=== PATIENT | female | born 1990 | race African-American/Black ===

== ENCOUNTER 2024-09-23 14:43 | Emergency (ER) | payer OTHER, SELFPAY ==
--- NOTE | ~2024-09-23 | XR_ITS ---
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 RESULT: Lines, tubes, and devices: None. Lungs and pleura: Low volumes with crowding, otherwise clear. Cardiomediastinal silhouette: Normal. Other: No acute osseous or upper abdominal finding. IMPRESSION: No acute cardiopulmonary process. Reviewed, dictated and finalized at location K. OR CONTROLS ENGINEER
--- NOTE | 2024-09-23 14:44 | ECG_ITS ---
Test Date: 2024-09-23 14:58:40 Measurements Intervals [place] Rate: 98 P: 37 NM: 165 QRS: 5 QRSD: 90 T: 1 QT: 337 QTc: 431 Interpretive Statements SINUS RHYTHM VOLTAGE CRITERIA FOR LVH BORDERLINE ST-T WAVE ABNORMALITY- INFERIOR LEADS BASELINE ARTIFACT- I, II, III, AVR, AVL, AVF, V3-V4 BORDERLINE ECG No previous ECG available for comparison Electronically Signed On 09-23-2024 15:02:56 [employer]CR[employer] by Horace Cline D.O.
--- NOTE | 2024-09-23 15:11 | ED_ITS ---
HPI - Chest Pain General Chief Complaint: Chest Pain Stated Complaint: CP Focused HPI: This is a 34-year-old female who presents to the ED for chief complaint of chest pain, palpitations onset about 1 hour prior to arrival. 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 States that when She stood up she started having dizziness, palpitations and that started having chest pain. 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 GENERAL: Well-appearing, well-nourished, and in no acute distress. HEAD: Normocephalic, atraumatic. CHEST: Clear to auscultation. No respiratory distress. HEART: Regular rate and rhythm. NEURO: Alert and oriented x3. Patient screened in triage and initial orders placed. Additional care and disposition to be based upon diagnostic testing and treatment. MDM - Chest Pain Lab Data 09/23/24 15:07 09/23/24 15:07 Labs: Lab Results 09/23/24 Range/Units 15:07 WBC Pending RBC Pending Hgb Pending Hct Pending MCV Pending MCH Pending MCHC Pending RDW Pending Plt Count Pending MPV Pending Immature Gran % (Auto) Pending Neut % (Auto) Pending Lymph % (Auto) Pending [place] % (Auto) Pending Eos % (Auto) Pending Baso % (Auto) Pending Lymph # (Auto) Pending [place] # (Auto) Pending Eos # (Auto) Pending Baso # (Auto) Pending Abs Immat Gran (auto) Pending Absolute Neuts (auto) Pending Absolute Nucleated RBC Pending Nucleated RBC % Pending PT Pending INR Pending APTT Pending Sodium Pending Potassium Pending Chloride Pending Carbon Dioxide Pending Anion Gap Pending BUN Pending Creatinine Pending Estim Creat Clear Calc Pending Estimated GFR Pending Glucose Pending Calcium Pending Total Bilirubin Pending AST Pending ALT Pending Alkaline Phosphatase Pending Troponin I Pending Total Protein Pending Albumin Pending Lipase Pending Discharge Plan Discharge Patient Language: Yakut Follow-up/Referrals: PHYSICIAN NOT ON STAFF,NONSTAFF [Primary Care Provider] -
[2024-09-23 15:13] LABS: Basophils Absolute Auto 0.1 K/mm3 (0.0-0.1); Basophils Percent Auto 0.7 % (0.2-1.2); Eosinophils Absolute Auto 0.1 K/mm3 (0-0.3); Eosinophils Percent Auto 0.6 % (0-4.4); Hematocrit 43.1 % (37.0-47.0); Hemoglobin 14.3 g/dL (12.0-15.0); Immature Granulocyte Absolute 0.02 K/mm3 (0.00-0.031); Immature Granulocyte Percent A 0.2 % (0-0.5); Lymphocytes Percent Auto 37.9 % (18.3-44.2); Mean Corpuscular HGB Conc 33.2 g/dl (32-36); Mean Corpuscular Hemoglobin 29.2 pg (26-34); Mean Platelet Volume 10.8 fl (7.4-10.4); Monocytes Absolute Auto 0.5 K/mm3 (0.1-0.6); Monocytes Percent Auto 5.7 % (2.6-8.5); Neutrophils Absolute Auto 4.9 K/mm3 (1.3-6.7); Neutrophils Percent Auto 54.9 % (45.5-73.1); Platelet Count Result 291 k/mm3 (150-375); Red Cell Distribution Width 13.2 % (11.5-14.5)
[2024-09-23 15:18] VITALS: BP 142/101; PULSE 103; RESP 16; TEMP 36.7; O2SAT 97
[2024-09-23 15:22] LABS: Alanine Aminotransferase 28 U/L (6-35); Albumin Level 4.8 g/dL (3.5-5.1); Alkaline Phosphatase 56 U/L (38-126); Anion Gap 14 mmol/L (4-12); Aspartate Amino Transferase 25 U/L (14-36); Bilirubin,Total 0.7 mg/dL (0.2-1.3); Blood Urea Nitrogen 10 mg/dL (7-17); Calcium 9.7 mg/dL (8.4-10.2); Carbon Dioxide 21 mmol/L (22-30); Chloride 104 mmol/L (98-107); Estimated CRCL calculation 132 ml/min; Estimated Glomerular Filt Rate > 60; Glucose 94 mg/dL (65-110); Lipase 342 U/L (23-300); Potassium 3.1 mmol/L (3.4-5.0); Sodium 139 mmol/L (137-145)
[2024-09-23 15:24] LABS: Partial Thromboplastin Time 23.8 Seconds (22.3-36.8); Prothrombin Time 13.3 Seconds (11.1-14.7)
[2024-09-23 15:34] LABS: Troponin I < 0.012 ng/mL (0.000-0.034)
--- NOTE | 2024-09-23 16:57 | ED.CHESTPAIN ---
HPI - Chest Pain General Chief Complaint: Chest Pain Stated Complaint: CP Time Seen by Provider: 09/23/24 16:49 Source: patient and family Mode of arrival: ambulatory Limitations: no limitations History of Present Illness HPI narrative: 34-year-old with no major medical problems presented to the ER with a complaint of right-sided chest pain which started about 15 minutes prior coming to the ER. Patient states that every time she moves in certain direction has pain in the right upper part of her chest. She denies any shortness of breath. No history of fever or chills. 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) Pain location: right chest Pain radiation: none Severity: mild Quality: aching Relieving factors: nothing Exacerbating factors: movement Treatment prior to arrival: none Review of Systems Review of Systems: All systems reviewed & are unremarkable except as noted in HPI and below Constitutional: Constitutional: Reports no additional constitutional complaints Eyes: Eyes: Reports no additional eye complaints ENT: Reports system reviewed and no additional complaints, except as documented Cardiovascular: Cardiovascular: Reports no additional cardiovascular complaints Respiratory: Respiratory: Reports no additional respiratory complaints Gastrointestinal: Gastrointestinal: Reports no additional gastrointestinal complaints Musculoskeletal: Musculoskeletal: Reports no additional musculoskeletal complaints Neurologic: Reports system reviewed and no additional complaints, except as documented Psychiatric: Psychiatric: Reports no additional psychiatric complaints Exam Narrative: GENERAL: Well-appearing, morbidly obese, and in no acute distress. HEAD: Normocephalic, atraumatic. EYES: PERRLA and EOMI. ENT: Nares clear, no rhinorrhea or epistaxis. Mucous membranes moist. NECK: Supple. CHEST: Clear to auscultation. No respiratory distress. Tenderness on palpation in the right costal margin HEART: Regular rate and rhythm. No murmur heard. Normal peripheral pulses. ABDOMEN: Soft, nontender, nondistended, normal active bowel sounds. EXTREMITIES: Normal range of motion. No edema. SKIN: Warm, dry, no rash. NEURO: No focal deficits. Alert and oriented x3. PSYCH: Normal mood and affect. Course Course Emergency Course: Notified patient and family about her lab work, EKG and chest x-ray finding her pain appears to be MSK advised her to take anti-inflammatory medication, follow-up with adoptive Vital Signs Vital signs: Vital Signs Temperature 36.7 C 09/23/24 15:18 Pulse Rate 103 H 09/23/24 15:18 Respiratory Rate 16 09/23/24 15:18 Blood Pressure 142/101 H 09/23/24 15:18 Pulse Oximetry 97 09/23/24 15:18 Temperature 36.7 C 09/23/24 15:18 Pulse Rate 103 H 09/23/24 15:18 Respiratory Rate 16 09/23/24 15:18 Blood Pressure 142/101 H 09/23/24 15:18 Pulse Oximetry 97 09/23/24 15:18 MDM - Chest Pain Differential Diagnosis Differential diagnosis: Likely fracture of rib, atypical chest pain, costochondritis and chest pain Medical Records Data Attestation: I reviewed the patient's medical records. Lab Data Attestation: I reviewed the patient's lab results. 09/23/24 15:07 09/23/24 15:07 Labs: Lab Results 09/23/24 Range/Units 15:07 WBC 9.0 (4.5-10.0) K/mm3 RBC 4.90 (4.2-5.4) M/mm3 Hgb 14.3 (12.0-15.0) g/dL Hct 43.1 (37.0-47.0) % MCV 88.0 (80-100) fl MCH 29.2 (26-34) pg MCHC 33.2 (32-36) g/dl RDW 13.2 (11.5-14.5) % Plt Count 291 (150-375) k/mm3 MPV 10.8 H (7.4-10.4) fl Immature Gran % (Auto) 0.2 (0-0.5) % Neut % (Auto) 54.9 (45.5-73.1) % Lymph % (Auto) 37.9 (18.3-44.2) % [place] % (Auto) 5.7 (2.6-8.5) % Eos % (Auto) 0.6 (0-4.4) % Baso % (Auto) 0.7 (0.2-1.2) % Lymph # (Auto) 3.40 H (0.9-3.2) K/mm3 [place] # (Auto) 0.5 (0.1-0.6) K/mm3 Eos # (Auto) 0.1 (0-0.3) K/mm3 Baso # (Auto) 0.1 (0.0-0.1) K/mm3 Abs Immat Gran (auto) 0.02 (0.00-0.031) K/mm3 Absolute Neuts (auto) 4.9 (1.3-6.7) K/mm3 Absolute Nucleated RBC 0.000 (0.0-0.012) K/mm3 Nucleated RBC % 0.0 (0.0-0.2) % PT 13.3 (11.1-14.7) Seconds INR 1.0 APTT 23.8 (22.3-36.8) Seconds Sodium 139 (137-145) mmol/L Potassium 3.1 L (3.4-5.0) mmol/L Chloride 104 (98-107) mmol/L Carbon Dioxide 21 L (22-30) mmol/L Anion Gap 14 H (4-12) mmol/L BUN 10 (7-17) mg/dL Creatinine 0.68 L (0.7-1.0) mg/dL Estim Creat Clear Calc 132 ml/min Estimated GFR > 60 (59 - ) Glucose 94 (65-110) mg/dL Calcium 9.7 (8.4-10.2) mg/dL Total Bilirubin 0.7 (0.2-1.3) mg/dL AST 25 (14-36) U/L ALT 28 (6-35) U/L Alkaline Phosphatase 56 (38-126) U/L Troponin I < 0.012 (0.000-0.034) ng/mL Total Protein 9.0 H (6.3-8.2) g/dL Albumin 4.8 (3.5-5.1) g/dL Lipase 342 H (23-300) U/L Imaging Data Radiologist's impression: ITS Impressions Chest X-Ray 09/23/24 15:34 IMPRESSION: No acute cardiopulmonary process. ECG Data EKG #1: ECG completion date: 09/23/24 ECG completion time: 14:58 EKG Interpretation: normal rate (98), sinus rhythm, no ST changes, normal QRS and no acute changes Discharge Plan Discharge Clinical Impression: Costalchondritis Chest pain Qualifiers: Chest pain type: other chest pain Qualified Code(s): R07.89 - Other chest pain Patient Disposition: Home, Self-Care Condition: Stable Instructions: Chest Wall Pain (ED) Patient Language: Pashto Prescriptions: New naproxen sodium [Anaprox DS] 550 mg tablet 550 mg PO Q12H PRN (Reason: pain) Qty: 14 0RF Follow-up/Referrals: PHYSICIAN NOT ON STAFF,NONSTAFF [Primary Care Provider] - Taco Marley MD [Physician] - Time of Disposition: 17:04
--- OUTSIDE RECORDS SUMMARY | 2024-09-23 17:11 | XMS_ITS | Clinical Summary ---
Author Organization [facility] Address [address] [place] [address] Care Team Providers Care Child Caregiver Name Role Phone Unavailable Primary Care Provider Unavailabl e Source Comments [facility],non-owned Affiliates and Associated Physician Practices is amultiple site organization consisting of ambulatory clinics and hospital sitesin [place], [place], [place] and [place]. This disclosure is being madepursuant to the Care Everywhere program and may not contain all information available regarding this patient. Last updated 18.[facility] Allergies Active Allergy Reactions Criticality Noted Date Comments [place] Flavor Unknown 01/02/2023 Morphine Unknown 01/02/2023 Peanut-Derived Itching 07/25/2012 Peanut janett and peanuts [place] Itching 07/25/2012 Medications * Be aware that medications may not be up to date on this document. Alwaysverify current medications with the patient. Medication Sig Dispensed Refills Start Date End Date Status docusate sodium (COLACE) 100 MG capsule Take 100 mg by mouth 3 times daily. Active multivitamin chew tablet Take 1 Tab by mouth once daily. Active acetaminophen (TYLENOL) 500 MG tablet Take 1 (one) tablet by mouth every 4 hours as needed Maximum allowable Acetaminophen amount = 4 Grams (4000 mg) / 24 hours. Active Progesterone 100 MG capsule Insert 1 (one) capsule into the vagina at bedtime Active cetirizine (ZyrTEC) 10 MG tablet Active famotidine (Pepcid) 10 MG tablet Active metoclopramide (Reglan) 10 MG tablet Take by mouth 3 times daily before meals Active Active Problems Problem Noted Date Diagnosed Date Supervision of high risk in [facility] 02/16/2023 Family History Medical History Relation Name Comments Kidney Disease Father Hypertension Maternal Grandmother Stroke Maternal Grandmother Cancer Paternal Grandmother Relation Name Status Comments Father Maternal Grandmother Paternal Grandmother Social History Tobacco Use Types Packs/Day Years Used Date Smoking Tobacco: Never Tobacco Cessation:Counseling Given: Yes Alcohol Use Standard Drinks/Week Comments No 0 (1 standard drink = 0.6 oz pur e alcohol) Overall Financial Resource Strain (CARDIA) Answe r Date Recorded How hard is it for you to pa y for the very basics like food, housing, medical care, and heating? Not hard at all 02/16/2023 [facility] Mode of Occupat ional Health - Occupational Stress Questionnaire Answer Date Recorded Do you feel stress - tense, restless, nervous, or anxious, or unable to sleep at night because your mind is troubled all the time - these days? Only a little 02/16/2023 Hunger Vital Sign Answer Date Recorded Within the past 12 months, y ou worried that your food would run out before you got the money to buy more. Never true 02/17/20 23 Within the past 12 months, t he food you bought just didn't last and you didn't have money to get more. Never true 02/16/2023 PRAPARE - Transportation Answer Date Re corded In the past 12 months, has l ack of transportation kept you from medical appointments or from getting medications? No 01/20 In the past 12 months, has l ack of transportation kept you from meetings, work, or from getting things needed for daily living? No 02/16/2023 Housing Stability Vital Sign Answer Venkat e Recorded In the last 12 months, was t here a time when you were not able to pay the mortgage or rent on time? No 02/16/2023 In the last 12 months, how many places have you lived? 1 02/16/2023 In the last 12 months, was t here a time when you did not have a steady place to sleep or slept in a fpc (including now)? 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 Height 160 cm (5' 3 ) 07/25/2012 8:25 AM VALIDATION SOFTWARE FACILITATOR Body Mass Index 31.71 07/25/2012 8:25 AM VALIDATION SOFTWARE FACILITATOR Plan of Treatment Health Maintenance Due Date Last Done Comments PAP SMEAR 1991 HIV SCREENING 2006 HEPATITIS C SCREENING 03/08/2009 DTAP/TDAP/TD VACCINES (1 - Tdap) 2010 HEPATITIS B VACCINE (1 of 3 - 19+ 3-dose series) 2010 COVID-19 VACCINE (3 - 2023- season) 2024 12/15/2020, 11/17/2020 INFLUENZA VACCINE (#1) 2024 2, 05/17/2021, 05/25/2020, Additional history exists DEPRESSION SCREENING 08/21/2024 ZOSTER VACCINE (1 of 2) 2041 HIB VACCINE Aged Out No longer eligi ble based on patient's age to complete this topic HPV VACCINE Aged Out No longer eligi ble based on patient's age to complete this topic MENINGOCOCCAL (Group B) VACCINE Aged Out No longer eligible based on patient's age to complete this topic MENINGOCOCCAL VACCINE Aged Out No karine deandra eligible based on patient's age to complete this topic PNEUMOCOCCAL VACCINE Aged Out No long er eligible based on patient's age to complete this topic Advance Directives * Full Code (Latest Code Status on File) Date Activated Date Inactivated Comments 02/16/2023 3:52 PM 02/16/2023 5:21 PM * FULL RESUSCITATION Date Activated Date Inactivated Comments 07/25/2012 2:54 PM 07/26/2012 4:20 PM * FULL RESUSCITATION Date Activated Date Inactivated Comments 07/25/2012 11:11 AM 07/25/2012 2:54 PM
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
--- OUTSIDE RECORDS SUMMARY | 2024-09-23 17:12 | XMS_ITS | Referral Summary ---
Author Organization [facility] Address [address] [place] [address] Care Team Providers Care Lpn Name Role Phone Unavailable Primary Care Provider Unavailabl e Source Comments [facility],non-owned Affiliates and Associated Physician Practices is amultiple site organization consisting of ambulatory clinics and hospital sitesin [place], [place] and [place]. This disclosure is being madepursuant to the Care Everywhere program and may not contain all information available regarding this patient. Last updated 18.[facility] Allergies Active Allergy Reactions Criticality Noted Date Comments Yordy Flavor Unknown 01/02/2023 Morphine Unknown 01/02/2023 Peanut-Derived Itching 07/25/2012 Peanut janett and peanuts Eldon Itching 07/25/2012 Medications * Be aware that [...] Diagnosed Date Supervision of high risk in [employer] 02/16/2023 Social History Tobacco Use Types Packs/Day Years [...] and heating? Not hard at all 02/16/2023 [facility] - Occupational Stress [...] place to sleep or slept in a mcc (including now)? 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 No 02/16/2023 Is person blind or have serious difficulty seein g? No 02/16/2023 Does person have serious dif ficulty walking/climbing stairs? No 02/16/2023 Does person have difficulty dressing/bathing? No 02/16/2023 Does person have difficulty doing errands alone? No 02/16/2023 Cognitive Status Response Date of Assessm ent Does person have difficulty concentrating/remembering/making decisions? No 02/16/2023 Plan of Treatment Not on file Advance Directives * Full Code (Latest Code Status on File) Date Activated Date Inactivated Comments 02/16/2023 3:52 PM 02/16/2023 5:21 PM * FULL RESUSCITATION Date Activated Date Inactivated Comments 07/25/2012 2:54 PM 07/26/2012 4:20 PM * FULL RESUSCITATION Date Activated Date Inactivated Comments 07/25/2012 11:11 AM 07/25/2012 2:54 PM
--- OUTSIDE RECORDS SUMMARY | 2024-09-23 17:12 | XMS_ITS | Patient Health Summary ---
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 This disclosure is being madepursuant to the Care Everywhere program and may not contain all information available regarding this patient. Last updated 18.[facility] [employer] Allergies * [place] Flavor(Unknown) * Morphine(Unknown) * Peanut-Derived(Itching) * [place](Itching) Medications * Be aware that medications may not be up to date on this document. Alwaysverify current medications with the patient. * docusate sodium (COLACE) 100 MG capsule Take 100 mg by mouth 3 times daily. * multivitamin chew tablet Take 1 Tab by mouth once daily. * acetaminophen (TYLENOL) 500 MG tablet Take 1 (one) tablet by mouth every 4 hours as needed Maximum allowable Acetaminophen amount = 4 Grams (4000 mg) / 24 hours. * Progesterone 100 MG capsule Insert 1 (one) capsule into the vagina at bedtime * cetirizine (ZyrTEC) 10 MG tablet * famotidine (Pepcid) 10 MG tablet * metoclopramide (Reglan) 10 MG tablet Take by mouth 3 times daily before meals Active Problems Problem Noted Date Diagnosed Date Supervision of high risk in [facility] 02/16/2023 Social History Tobacco Use Types Packs/Day [...] and heating? Not hard at all 02/16/2023 [facility] [place] [facility] Occupat ional Health - Occupational Stress [...] place to sleep or slept in a fci (including now)? No 02/16/2023 Sex and Gender [...] 81.2 kg (179 lb) 07/25/2012 8:25 AM UNDERGRADUATE INTERN Height 160 cm (5' 3 ) 07/25/2012 8:25 AM UNDERGRADUATE INTERN Body Mass Index 31.71 07/25/2012 8:25 AM UNDERGRADUATE INTERN Procedures * BIOPHYSICAL PROFILE W NST(Performed 04/18/2023) Performed for Fifth (HCC), Obesity affecting in second trimester (HCC), Poor growth affecting management of mother in third trimester, single or unspecified fetus (HCC), History of delivery, currently , unspecified trimester (HCC), History of cerclage, currently , unspecified trimester (HCC), Encounter for ultrasound (HCC), 36 weeks gestation of (HCC) * BIOPHYSICAL PROFILE W NST(Performed 04/11/2023) Performed for Fifth (HCC), Encounter for ultrasound (HCC), Obesity affecting in second trimester (HCC), Poor growth affecting management of mother in third trimester, single or unspecified fetus (HCC), History of delivery, currently , unspecified trimester (HCC), History of cerclage, currently , unspecified trimester (HCC), 35 weeks gestation of (HCC) * BIOPHYSICAL PROFILE W NST(Performed 04/07/2023) Performed for Fifth (HCC), Encounter for ultrasound (HCC), Poor growth affecting management of mother in third trimester, single or unspecified fetus (HCC), 33 weeks gestation of (HCC), History of delivery, currently , unspecified trimester (HCC), Obesity affecting in second trimester (HCC) * BIOPHYSICAL PROFILE W NST(Performed 04/04/2023) Performed for Fifth (HCC), Encounter for ultrasound (HCC), Poor growth affecting management of mother in third trimester, single or unspecified fetus (HCC), 33 weeks gestation of (HCC), History of delivery, currently , unspecified trimester (HCC), Obesity affecting in second trimester (HCC) * BIOPHYSICAL PROFILE W NST(Performed 03/28/2023) Performed for Fifth (HCC), Encounter for ultrasound (HCC), Poor growth affecting management of mother in third trimester, single or unspecified fetus (HCC), 33 weeks gestation of (HCC), History of delivery, currently , unspecified trimester (HCC), Obesity affecting in second trimester (HCC) * BIOPHYSICAL PROFILE W NST(Performed 03/21/2023) Performed for Fifth (HCC), History of delivery, currently , unspecified trimester (HCC), History of cerclage, currently , unspecified trimester (HCC), Obesity affecting in second trimester (HCC), Encounter for ultrasound (HCC), 29 weeks gestation ofpregnancy (HCC) * BIOPHYSICAL PROFILE W NST(Performed 03/14/2023) Performed for Fifth (HCC), History of delivery, currently , unspecified trimester (HCC), History of cerclage, currently , unspecified trimester (HCC), Obesity affecting in second trimester (HCC), Encounter for ultrasound (HCC), 29 weeks gestation ofpregnancy (HCC) * BIOPHYSICAL PROFILE W NST(Performed 03/07/2023) Performed for Fifth (HCC), History of delivery, currently , unspecified trimester (HCC), History of cerclage, currently , unspecified trimester (HCC), Obesity affecting in second trimester (HCC), Encounter for ultrasound (HCC), 29 weeks gestation ofpregnancy (HCC) * BIOPHYSICAL PROFILE W NST(Performed 03/03/2023) Performed for Fifth (HCC), History of delivery, currently , unspecified trimester (HCC), History of cerclage, currently , unspecified trimester (HCC), Obesity affecting in second trimester (HCC), Encounter for ultrasound (HCC), 29 weeks gestation ofpregnancy (HCC) * BIOPHYSICAL PROFILE W NST(Performed 02/28/2023) Performed for Fifth (HCC), History of delivery, currently , unspecified trimester (HCC), History of cerclage, currently , unspecified trimester (HCC), Obesity affecting in second trimester (HCC), Encounter for ultrasound (HCC), 29 weeks gestation ofpregnancy (HCC) * BIOPHYSICAL PROFILE W NST(Performed 02/24/2023) Performed for Fifth (HCC), History of delivery, currently , unspecified trimester (HCC), History of cerclage, currently , unspecified trimester (HCC), Obesity affecting in second trimester (HCC), Encounter for ultrasound (HCC), 29 weeks gestation ofpregnancy (HCC) * BIOPHYSICAL PROFILE W NST(Performed 02/22/2023) Performed for Fifth (HCC), History of delivery, currently , unspecified trimester (HCC), History of cerclage, currently , unspecified trimester (HCC), Obesity affecting in second trimester (HCC), Encounter for ultrasound ([facility]), 29 weeks gestation ofpregnancy (HCC) * NONSTRESS TEST(Performed 02/16/2023) Performed for Supervision of high risk in third trimester (HCC) * SONOGRAM - COMPLETE(Performed 02/16/2023) Performed for Fifth (HCC), History of delivery, currently , unspecified trimester (HCC), History of cerclage, currently , unspecified trimester (HCC), 26 weeks gestation of (HCC), Obesity affecting in second trimester (HCC) * SONOGRAM - COMPLETE(Performed 01/04/2023) Performed for Encounter for ultrasound ([facility]), Fifth (HCC), History of delivery, currently , unspecified trimester (HCC), History of cerclage, currently , unspecified trimester (HCC), 22 weeks gestation of (HCC) * IMAGING/RADIOLOGY/XRAY RESULTS ORDER(Performed 08/01/2012) * CBC W AUTO DIFFERENTIAL(Performed 07/26/2012) * CULTURE TISSUE(Performed 07/25/2012) * CULTURE TISSUE(Performed 07/25/2012) * CULTURE ANAEROBE(Performed 07/25/2012) * CULTURE ANAEROBE(Performed 07/25/2012) * BLOOD GASES CORD GARCIA(Performed 07/25/2012) * BLOOD GASES CORD ARTERIAL(Performed 07/25/2012) * CHLAMYDIA + GC AMPLIFIED PROBE(Performed 07/25/2012) * TYPE + SCREEN PANEL(Performed 07/25/2012) Performed for Supervision of high-risk * BASIC METABOLIC PANEL (CALCIUM TOTAL)(Performed 07/25/2012) Performed for Supervision of high-risk * CBC W AUTO DIFFERENTIAL(Performed 07/25/2012) Performed for Supervision of high-risk * URINALYSIS REFLEX MICROSCOPIC REFLEX CULTURE(Performed 07/25/2012) Performed for Supervision of high-risk * CULTURE URINE(Performed 07/25/2012) * PATHOLOGY TISSUE EXAM (STL)(Performed 07/25/2012) Results * BIOPHYSICAL PROFILE W NST (04/18/2023 11:11 AM CDT) Only the most recent of12 resultswithin the time period is included. Anatomical Region Laterality Modality Other 04/18/2023 11:1 1 AM CDT Narrative 04/18/2023 4:45 PM CDT ?[facility] ?PHONE: ??FAX: ? Pat. Name: ?ALY BAIRES Pat. No: ?[id number] Study Date: ?? 04/18/2023 ??11:11am , Age: ? 1990, 33 Pregnancies: ?? 5, Para 1303 Height: ? 60 in Weight: ? 262 lb LMP: ?Unknown GA by Base: ?? 36w6d ?? ALFONSO: 05/10/2023 GA by US: ? 32w5d ?? 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 [id number] BMI: ?51.16 Hist/Ind: ? G1: 22 week, baby after 1 hour ?G2: 36 week vaginal delivery, cerclage ?G3: 37 week vaginal delivery, cerclage ?G4: 35 week vaginal delivery, cerclage ?G5: Cerclage, Class III obesity, Low-risk cf-DNA, IR, IUGR, HTN MEASUREMENTS & AGE ? GROWTH EVALUATION Measurement ??GA ? Range ? Srce %for GA Ratios ----- ---- ------- BPD ??8.3 cm 33w2d (95t9q-47v0c) Hadl BPD 1% FL/BPD 0.77 (0.71 - 0.87) HC ??29.8 cm 33w0d (29x3g-91q6u) Hadl HC ??<01 FL/AC ??0.21 (0.20 - 0.24) AC ??29.9 cm 33w6d (05h4t-42b3b) Hadl AC ??3% HC/AC ??1.00 (0.92 - 1.11) FL ?? 6.4 cm 32w6d (98p8o-02g8o) Hadl FL ??<01 CI ? 0.79 (0.70 - 0.86) HL ?? 5.5 cm 31w6d (67z4q-94o8l) Armando HL ??<05 GA for sonogram 32w5d (22t6g-93n0c) ?? Weight Estimate: based on (BPD,HC,AC,FL) Hadlock ?Weight: 2195 gm (1875-2516gm) Had ? : 4lbs, 13oz ? Normal: 2988 gm (2241- 3735gm) Had ? Wt% ? <3 for 36w6d Heart Rate: 141 bpm Amniotic Fluid Index: 18.2cm (07.5-24.5) Q1: 7.0cm ??Q2: 3.3cm ??Q3: 4.3cm ??Q4: 3.6cm ?? Biophysical Profile: 05/30 Breathin ?? Tone: 2 ?? NST: 2 Movement: ??2 ?? AFV: ??2 EVAL, PLACENTA Presentation: cephalic Placenta: anterior Heart Rate: 141 bpm Amniotic Fluid Volume: normal DOPPLER Umbilical - Mid Cord S/D ??3.75(1.60 - 3.44) * ?? PI ?? 1.18 (0.56 - 1.14) * ?? Middle Cerebral Artery PSV ??59.7cm/s PI ?? 2.22 (1.32 - 2.41) ? Med PSV 55.6cm/s MoM 1.07(<1.5) CLINICAL SUMMARY Single, live intrauterine at 36w6d in cephalic presentation Amniotic fluid volume normal, ?? size severe IUGR/SGA, ?? surface placental cyst 2.6x1.2x2.2 cm Biophysical profile: Normal (05/30) with reactive NST, normal baseline, moderate BTBV ?? Doppler studies: increased placental vascular resistance of UA, with no cephalization of MCA ?? RECOMMEND: Proceed with delivery at 37w0d (tomorrow) Rajiv Mendez MD <Electronic Signature> ??04/18/2023 04:45pm Kenny Uriostegui DO M ORDERABLES * NONSTRESS TEST (02/16/2023 3:56 PM CDT) Narrative Roseline Dobbs MD - 02/16/2023 3:56 PM CDT Mell Diaz MD ? 02/16/2023 ??9:34 PM Name: ??Aly Baires Date of : ??1990 Today's Date: ??02/16/2023 28w1d ?NST RESULTS (BURNS) OBJECTIVE FINDINGS Temp: 98.5 ??F (36.9 ??C), ??, Resp: 17, BP: 122/70 NST Indication(s): Other (Comment) (extended monitoring) Uterine Irritability: No Contractions: Not present OBJECTIVE FINDINGS Movement: Present Monitoring Mode: External Baseline: 140 BPM Variability: Moderate Decelerations: None Accelerations: Yes OTHER INFORMATION Liliya Mars, RN Non-Stress Test Indications: FGR Patient Active Problem List: ?? Supervision of high risk in third trimester Interpretation: Baseline: ??140 beats/minute moderate variability Reactive Contractions: ??none Decelerations: ??none FWB reassuring, continue monitoring as scheduled. Mell Diaz MD 02/16/2023 9:33 PM Solange Todd PRODUCT OPERATIONS ASSOCIATE-SEARCHLIGHT OPERATOR OB GYNE ORDER TUSHAR * SONOGRAM - COMPLETE (02/16/2023 7:46 AM CDT) Only the most recent of2 resultswithin the time period is included. Anatomical Region Laterality Modality Other 02/16/2023 7:46 AM CDT Narrative 02/16/2023 11:03 AM CDT ?[facility] ?[facility] ?PHONE: ??FAX: ? Pat. Name: ?ALY BAIRES Pat. No: ?[id number] Study Date: ?? 02/16/2023 ??7:46am , Age: ? 1990, 32 Height: ? 60 in Weight: ? 262 lb LMP: ?Unknown GA by Base: ?? 28w1d ?? ALFONSO: 05/10/2023 GA by US: ? 26w4d ?? 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 08280,[id number] BMI: ?51.16 Hist/Ind: ? Incomplete Anatomic Survey ?Class IV Obesity ?[place]: carrier screen: negative, NIPT: low risk (female) ?Current cerclage ?Insulin resistance ?G1: PTD at 22 weeks, baby after 1 hour ?G2: 36 week vaginal delivery, cerclage ?G3: 37 week vaginal delivery, cerclage ?G4: 35 week vaginal delivery, cerclage MEASUREMENTS & AGE ? GROWTH EVALUATION Measurement ??GA ? Range ? Srce %for GA Ratios ----- ---- ------- BPD ??6.5 cm 26w2d (65x4a-83q1o) Hadl BPD 2% FL/BPD 0.80 (0.71 - 0.87) HC ??24.5 cm 26w4d (72b5g-05h4t) Hadl HC ??1% FL/AC ??0.25 (0.20 - 0.24* AC ??20.5 cm 25w1d (68z1e-93t5f) Hadl AC ??<01 HC/AC ??1.19 (0.99 - 1.18* FL ?? 5.2 cm 27w5d (51w8v-80z3y) Hadl FL ??26% CI ? 0.74 (0.70 - 0.86) GA for sonogram 26w4d (34q8k-21u6g) ?? Weight Estimate: based on (HC,FL) Hadlock ? Weight: 917 gm (783-1051gm) Hadlo ? : 2lbs, 0oz ? Normal: 1227 gm (921- 1534gm) Hadl ? Wt% ? <3 for 28w1d Heart Rate: 151 bpm Biophysical Profile: 05/30 Breathin ?? Tone: 2 ?? NST: 2 Movement: ??2 ?? AFV: ??2 EVAL, PLACENTA Presentation: cephalic Umbilical Cord: 3 Vessels Placenta: anterior Heart Rate: 151 bpm Amniotic Fluid Volume: normal DOPPLER Umbilical - Mid Cord S/D ??3.79(2.08 - 4.35) ? PI ?? 1.31 (0.75 - 1.35) ? MATERNAL ANATOMY Fibroids LxHxW (cm) 1: 2.8 x 3.4 x 1.7 Loc: Midline mid anterior (posterior to the placent Anatomy!Normal!Abnormal!Suboptimal!Prev. Seen!Comments Cranium ?! ?? x ??! ?! ?! ? x ?! Mdl (CSP/Thal! ?! ?! ?! ? x ?! Ventricles ?? ! ?! ?! ?! ? x ?! Choroid Plexu! ?! ?! ?! ? x ?! Cerebellum ?? ! ?! ?! ?! ? x ?! Cisterna M. ??! ?! ?! ?! ? x ?! Nuchal Fold ??! ?! ?! ?! ? x ?! Orbits ? ! ?! ?! ?! ? x ?! Profile ?! ?! ?! ?! ? x ?! Nasal Bone ?? ! ?! ?! ?! ? x ?! Lip ?! ?! ?! ? x ?! ?! Spine ?! ?! ?! ? x ?! ?! Lungs ?! ?? x ??! ?! ?! ?! 4 Chamber Hea! ?? x ??! ?! ?! ?! LVOT ? ! ?? x ??! ?! ?! ?! RVOT ? ! ?? x ??! ?! ?! ?! 3 Vessel View! ?? x ??! ?! ?! ?! 3 Vessel Trac! ?? x ??! ?! ?! ?! Cross-over ?? ! ?? x ??! ?! ?! ?! Ductal Arch ??! ?? x ??! ?! ?! ?! Aortic Arch ??! ?? x ??! ?! ?! ?! Caval View ?? ! ?? x ??! ?! ?! ?! Situs ?! ?? x ??! ?! ?! ?! Diaphragm ?! ?? x ??! ?! ?! ?! Stomach ?! ?! ?! ?! ? x ?! Bowel ?! ?! ?! ?! ? x ?! Kidneys ?! ?! ?! ?! ? x ?! Bladder ?! ?! ?! ?! ? x ?! 3 Vessel Cord! ?! ?! ?! ? x ?! Cord In! ?! ?! ?! ? x ?! Upper Extremi! ?! ?! ?! ? x ?! Hands ?! ?? x ??! ?! ?! ?!suboptimal left ?hand, ?unremarkable ?right hand Lower Extremi! ?! ?! ?! ? x ?! Feet ? ! ?! ?! ?! ? x ?! External Matilda! ?! ?! ?! ?!Female Placental Cor! ?? x ??! ?! ?! ?! CLINICAL SUMMARY A single fetus is seen in cephalic presentation. ??The measurements today are consistent with small for gestational age. ??The ALFONSO is based on a prior ultrasound. ??The amniotic fluid volume is within normal limits. ?? IMPRESSION: Single, live, intrauterine at 28w1d ?? IUGR Amniotic fluid volume: within normal limits ?? No major malformations were seen within the limitations of ultrasound Reassuring BPP score, though with an NST that shows decels Small fibroid RECOMMEND: To [facility] at [facility] now for further monitoring and evaluation given decelerations in setting of IUGR Pending WEU assessment, if outpatient she will need at least weekly BPP/Doppler studies with a follow growth assessment in 2-3 weeks Thank you for allowing us the opportunity to care for your patient Jaciel Valera MD <Electronic Signature> ??02/16/2023 11:03am Kneneth Su MD Kaushik ORDERABLES * IMAGING/RADIOLOGY/XRAY RESULTS ORDER (08/01/2012 9:43 AM UNDERGRADUATE INTERN) Anatomical Region Laterality Modality Other Narrative 08/01/2012 9:43 AM UNDERGRADUATE INTERN Procedure Note Document, Scanned - 08/01/2012 9:43 AM CST Scanned Document IMAGING * (ABNORMAL) CBC W AUTO DIFFERENTIAL (07/26/2012 6:28 AM UNDERGRADUATE INTERN) Only the most recent of2 resultswithin the time period is included. WBC 10.7 4.4 - 10.7 x10^9/L 07/26/2012 8:30 AM [facility] RBC 3.38(L) 3.80 - 5.20 x10^12/L 07/26/2012 8:30 AM [facility] Hemoglobin 10.3(L) 12.0 - 15.6 g/dL 07/26/2012 8:30 AM [facility] Hematocrit 30.0(L) 35.9 - 45.5 % 07/26/2012 8:30 AM [facility] MCV 88.8 80.7 - 98.3 fl 07/26/2012 8:30 AM [facility] MCH 30.5 26.7 - 34.0 pg 07/26/2012 8:30 AM [facility] MCHC 34.3 30.8 - 35.9 gm/dL 07/26/2012 8:30 AM [facility] RDW-CV 13.4 12.1 - 14.9 % 07/26/2012 8:30 AM [facility] MPV 11.6 9.4 - 12.9 fl 07/26/2012 8:30 AM [facility] Neutrophils % 68 44 - 73 % 07/26/2012 8:30 AM [facility] Lymphocytes % 19(L) 20 - 43 % 07/26/2012 8:30 AM [facility] Monocytes % 11 5 - 13 % 07/26/2012 8:30 AM [facility] Eosinophils % 1 0 - 6 % 07/26/2012 8:30 AM [facility] Basophils % 0 0 - 2 % 07/26/2012 8:30 AM [facility] Immature Granulocytes 0.4 0 - 1 % 07/26/2012 8:30 AM [facility] Neutrophil Absolute 7.30(H) 2.01 - 7.14 x10^9/L 07/26/2012 8:30 AM [facility] Lymphocytes Absolute 2.04 1.07 - 3.94 x10^9/L 07/26/2012 8:30 AM [facility] Monocytes Absolute 1.17(H) 0.26 - 1.07 x10^9/L 07/26/2012 8:30 AM [facility] Eosinophils Absolute 0.12 0 - 0.47 x10^9/L 07/26/2012 8:30 AM [facility] Basophils Absolute 0.04 0 - 0.08 x10^9/L 07/26/2012 8:30 AM [facility] Immature Granulocytes Absolute 0.04 0.00 - 0.06 x10^9/L 07/26/2012 8:30 AM [facility] nRBC Auto 0 07/26/2012 8:30 AM [facility] Platelet Count 223 153 - 416 x10^9/L 07/26/2012 8:30 AM [facility] Blood specimen (specimen) BLOOD SPECIMEN / Unknown 07/26/2012 6:28 AM UNDERGRADUATE INTERN 07/26/2012 7:[address] [facility] Nereida May MD LAB - HEMATOLOGY OR DERABLES [facility] [address] [place] [address] * CULTURE TISSUE (07/25/2012 4:[address] [facility]) Only the most recent of2 resultswithin the time period is included. Culture SEE BELOW 07/29/2012 8:51 AM [facility] INTERFACES Comment: - Final - GRAM STAIN Moderate RBCs No organisms seen. CULTURE ENTEROCOCCUS FAECALIS ??Light growth ??Gentamicin 500 susceptible ? predicts synergy between ??ampicillin, penicillin, or ? vancomycin plus gentamicin ??Streptomycin 1000 susceptible ? predicts synergy between ??ampicillin, penicillin, or ? vancomycin plus ? streptomycin ??when isolates are sensitive to ? these agents. ??Combination therapy may be ? indicated for serious ? Enterococcal infection. ??Ampicillin- ?S ?? <=2 ??Gentamicin S- ??Susceptible ??Linezolid- ? S ? 2 ??Streptomycin- ??Susceptible ??Vancomycin- ?S ? 2 DIPHTHEROIDS ??Light growth Miscellaneous samples (specimen) ENTIRE PART OF PLACENTA / Unknown 07/25/2012 4:52 PM UNDERGRADUATE INTERN 07/25/2012 5:55 PM UNDERGRADUATE INTERN Nereida May MD LAB - MICROBIOLOGY ORDERABLES Performing Organization Address [facility] de Phone Number [facility] INTERFACES [address] [place] * CULTURE ANAEROBE (07/25/2012 4:52 PM UNDERGRADUATE INTERN) Only the most recent of2 resultswithin the time period is included. Culture SEE BELOW 08/02/2012 1:03 PM UNDERGRADUATE INTERN [facility] INTERFACES Comment: - Final - CULTURE No anaerobic growth. Miscellaneous samples (specimen) ENTIRE PART OF PLACENTA / Unknown 07/25/2012 4:52 PM UNDERGRADUATE INTERN 07/25/2012 5:55 PM UNDERGRADUATE INTERN Nereida May MD LAB - MICROBIOLOGY ORDERABLES Performing Organization Address [facility] de Phone Number [facility] INTERFACES [address] [place] * (ABNORMAL) BLOOD GASES CORD VENOUS (07/25/2012 3:01 PM UNDERGRADUATE INTERN) pH Cord Venous 7.40 7.28 - 7.40 pH 07/25/2012 3:01 PM UNDERGRADUATE INTERN [facility] pCO2 Cord Venous 39 35 - 45 mm hg 07/25/2012 3:01 PM UNDERGRADUATE INTERN [facility] pO2 Cord Venous 25 22 - 33 mm hg 07/25/2012 3:01 PM UNDERGRADUATE INTERN [facility] HCO3 Cord Venous 25(H) 22 - 24 mmol/L 07/25/2012 3:01 PM UNDERGRADUATE INTERN [facility] BE Cord Venous 0 mmol/L 07/25/2012 3:01 PM UNDERGRADUATE INTERN [facility] O2 Saturation Cord Venous 47 % 07/25/2012 3:01 PM UNDERGRADUATE INTERN [facility] Mode Unknown (none) 07/25/2012 3:01 PM UNDERGRADUATE INTERN [facility] Sample Site Other (none) 07/25/2012 3:01 PM UNDERGRADUATE INTERN [facility] Sample Type Venous 07/25/2012 3:01 PM UNDERGRADUATE INTERN [facility] Store Administrator ID [id number] 07/25/2012 3:01 PM [facility] Notified Who outside collector irvin 07/25/2012 3:01 PM [facility] Notification Time 07/25/2012 15:01 07/25/2012 3:01 PM [facility] Notified By bfrt 07/25/2012 3:01 PM [facility] Blood specimen (specimen) CORD BLOOD SPECIMEN / Unknown 07/25/2012 2:40 PM UNDERGRADUATE INTERN Irving Power MD LAB - BLOOD GASES OR DERABLES [facility] [address] [place] [address] * (ABNORMAL) BLOOD GASES CORD ARTERIAL (07/25/2012 3:00 PM UNDERGRADUATE INTERN) pH Cord Arterial 7.30 7.20 - 7.34 pH 07/25/2012 3:00 PM [facility] pCO2 Cord Arterial 58(H) 45 - 55 mm hg 07/25/2012 3:00 PM [facility] pO2 Cord Arterial 14 12 - 25 mm hg 07/25/2012 3:00 PM [facility] HCO3 Cord Arterial 28(H) 22 - 24 mmol/L 07/25/2012 3:00 PM [facility] O2 Saturation Cord Arterial 0 % 07/25/2012 3:00 PM [facility] BE Cord Arterial 0 mmol/L 07/25/20 12 3:00 PM [facility] Mode Unknown (none) 07/25/2012 3:00 PM [facility] Sample Site Other (none) 07/25/2012 3:00 PM [facility] Sample Type Arterial 07/25/2012 3:00 PM [facility] Store Administrator ID [id number] 07/25/2012 3:00 PM [facility] Notified Who outside collector irvin 07/25/2012 3:00 PM [facility] Notification Time 07/25/2012 15:00 07/25/2012 3:00 PM [facility] Notified By bfrt 07/25/2012 3:00 PM [facility] Blood specimen (specimen) CORD BLOOD SPECIMEN / Unknown 07/25/2012 2:40 PM UNDERGRADUATE INTERN Irving Power MD LAB - BLOOD GASES OR DERABLES Performing Organization Address City/[facility] Co de Phone Number [facility] [address] [place] [address] * CHLAMYDIA + GC AMPLIFIED PROBE (07/25/2012 11:23 AM UNDERGRADUATE INTERN) Ref Lab Sendout 2 3:40 PM UNDERGRADUATE INTERN [facility] INTERFACES Chlamydia trachomatis Amplified Probe Negative 07/26/2012 3:40 PM UNDERGRADUATE INTERN [facility] INTER[facility]AC[facility] GC Amplified Probe Negative 07/26/2012 3:40 PM UNDERGRADUATE INTERN [facility] [facility] Comment Amplified Probe CHLAM/GC COM 07/26/2012 3:40 PM [facility] Comment: Results based on detection/no detection of RNA by amplified method. Comment Chlamydia/GC Confirm 07/26/2012 3:40 PM UNDERGRADUATE INTERN [facility] Comment 07/26/2012 3:40 PM UNDERGRADUATE INTERN [facility] Additional Comment 07/26/2012 3:40 PM UNDERGRADUATE INTERN [facility] Called to Read Back by 07/26/2012 3:40 PM [facility] Miscellaneous samples (specimen) PART OF UTERINE CERVIX / Unknown 07/25/2012 11:23 AM UNDERGRADUATE INTERN 07/25/2012 11:56 AM UNDERGRADUATE INTERN Leonor Schaffer MD LAB - MICROBIOLOGY ORDERABLES Performing Organization Address City/[facility]/ZIP Co de Phone Number [facility] [address] [place] [address], [facility] * TYPE + SCREEN PANEL (07/25/2012 10:51 AM UNDERGRADUATE INTERN) ABO B 07/25/2012 12:45 PM UNDERGRADUATE INTERN [facility] Rh Type Positive 07/25/2012 12:45 PM UNDERGRADUATE INTERN [facility] Antibody Screen Negative 07/25/2012 12:45 PM UNDERGRADUATE INTERN [facility] Miscellaneous samples (specimen) BLOOD SPECIMEN / Unknown 07/25/2012 10:51 AM UNDERGRADUATE INTERN 07/25/2012 11:01 AM UNDERGRADUATE INTERN Leonor Schaffer MD LAB - BLOOD BANK OR DERABLES [facility] * (ABNORMAL) BASIC METABOLIC PANEL (CALCIUM TOTAL) (07/25/2012 10:51 AM UNDERGRADUATE INTERN) Glucose 72(L) 74 - 106 mg/dL 07/25/2012 11:30 AM [facility] Sodium 140 136 - 145 mmol/L 07/25/2012 11:30 AM [facility] Potassium 3.3(L) 3.5 - 5.1 mmol/L 07/25/2012 11:30 AM [facility] Chloride 104 98 - 107 mmol/L 07/25/2012 11:30 AM [facility] CO2 24 22 - 31 mmol/L 07/25/2012 11:30 AM [facility] Calcium 8.8 8.5 - 10.1 mg/dL 07/25/2012 11:30 AM [facility] Anion Gap 12(H) 3 - 11 mmol/L 07/25/2012 11:30 AM [facility] BUN 3(L) 7 - 21 mg/dL 07/25/2012 11:30 AM [facility] Creatinine 0.29(L) 0.50 - 1.30 mg/dL 07/25/2012 11:30 AM [facility] eGFR by MDRD >60 >60 ml/min/1.7 3m2 07/25/2012 11:30 AM [facility] eGFR by MDRD >60 >60 ml/min/1.7 3m2 07/25/2012 11:30 AM [facility] Blood specimen (specimen) BLOOD SPECIMEN / Unknown 07/25/2012 10:51 AM UNDERGRADUATE INTERN 07/25/2012 11:02 AM UNDERGRADUATE INTERN Leonor Schaffer MD LAB - CHEMISTRY ORD ERABLES [facility] [address] [place] [address] * (ABNORMAL) URINALYSIS ROUTINE W/REFLEX TO CULTURE (07/25/2012 8:53 AM UNDERGRADUATE INTERN) Color UA Yellow Straw, Yellow, Dark Yellow 07/25/2012 10:13 AM [facility] Clarity UA Cloudy (none) 07/25/2012 10:13 AM [facility] Specific [place] UA 1.017 1.005 - 1.030 07/25/2012 10:13 AM [facility] pH UA 6.5 5.0 - 8.0 07/25/2012 10:13 AM [facility] Protein UA Negative Negative 07/25/2012 10:13 AM [facility] Blood UA Negative Negative 07/25/2012 10:13 AM [facility] Leukocyte UA Negative Negative 07/25/2012 10:13 AM [facility] Nitrite UA Negative Negative 07/25/2012 10:13 AM [facility] Glucose UA Negative Negative 07/25/2012 10:13 AM [facility] Ketone UA 3+(A) Negative 07/25/2012 10:13 AM [facility] Bilirubin UA Negative Negative 07/25/2012 10:13 AM [facility] Urobilinogen UA 0.2 0.1 - 1.0 EU/dL 07/25/2012 10:13 AM [facility] WBC UA Auto 2-5 0-2, 2-5 #/hpf 07/25/2012 10:13 AM [facility] RBC UA Auto 0-2 0-2, 2-5 #/hpf 07/25/2012 10:13 AM [facility] Epithelial Cell UA Auto 2-5 0-2, 2-5 #/hpf 07/25/2012 10:13 AM [facility] Reflex Status Culture not indicated (none) 07/25/2012 10:13 AM [facility] Hyaline Casts UA Auto Reflex to manual(A) None seen #/lpf 07/25/2012 10:13 AM [facility] Urine specimen (specimen) URINE SPECIMEN COLLECTION, CATHETERIZED / Unknown 07/25/2012 8:[address] [facility] 07/25/2012 9:[address] [facility] Caridad Garcia MD LAB - URINALYSIS ORD ERABLES [facility] [address] [place] [address] * CULTURE URINE (07/25/2012 8:53 AM UNDERGRADUATE INTERN) Culture SEE BELOW 07/28/2012 11:13 AM UNDERGRADUATE INTERN [facility] Comment: - Final - CULTURE No Growth (<1000 CFU/mL) Urine specimen (specimen) URINE SPECIMEN COLLECTION, CATHETERIZED / Unknown 07/25/2012 8:53 AM UNDERGRADUATE INTERN 07/25/2012 11:14 AM UNDERGRADUATE INTERN Leonor Schaffer MD LAB - MICROBIOLOGY ORDERABLES Performing Organization Address [facility]/State/ZIP Co de Phone Number [facility] INTERFACES [address] [place] [address], [place] * GROSS + MICRO EXAM (STL) (07/25/2012 7:56 AM UNDERGRADUATE INTERN) Case Report Surgical Pathology Report ? Case: [id number] ? --- Authorizing Provider: ??Irving Power MD ?Ordering Provider: ?? Leonor Schaffer MD ? Ordering Location: ? [facility] 5 LDR ? Collected: ? 07/25/2012 ??7:56 AM ? Pathologist: ? Brandon Alfaro MD ? Received: ?07/26/2012 11:03 AM ?Signed Out: ?07/27/2012 ??3:01 PM (Final) ? Specimen: ?Placenta ? 07/27/2012 3:01 PM [facility] Final Diagnosis 1. Placenta, delivery: -- Second trimester placenta (weight 210 gm) -- Three vessel umbilical cord with moderate ?? funisitis -- Moderate to severe acute chorioamnionitis /lma 07/27/2012 3:01 PM [facility] Gross Description Submitted fixed in formalin in one container for gross and microscopic examination, labeled with the patient's name Aly Baires and (placenta) is one placenta with attached segment of umbilical cord and membranes. The placental disc measures 11.5 x 8.7 and is up to 2.5 cm in thickness. The umbilical cord segment is 14 cm in length and up to 1.5 cm in diameter. There are no knots of the umbilical cord and the surface is yellow-white and glistening. There is a clamp that is still attached to the cord. The umbilical cord attachment is eccentric with the closest margin 2.3 cm. There are three umbilical cord vessels. The membranes are torn and have a red-pink transparent appearance. The surface has a blue hue. The maternal surface has areas of loosely adherent coagula and also one area that measures 6 cm x 4 cm that is hemorrhagic. Section surfaces show a spongy red-pink placental parenchyma. The placenta weighs 210 grams. [employer] sections are taken and are submitted as follows: A1 umbilical cord and membranes A2 placental surface A3 maternal placental surface section that is more hemorrhagic and containing the placental surface as well LEONOR/lizbeth 07/27/2012 3:01 PM [facility] Microscopic Description Sections of the umbilical cord show three vessels with moderate funisitis identified. Sections of the membranes show moderate to severe acute chorioamnionitis. Sections of the placental disc show immature chorionic villi with dysmaturation. Hemorrhage or infarction is not seen. SHIVAM/carlee 07/27/2012 3:01 PM [facility] Synoptic Report 07/27/2012 3:01 PM [facility] Miscellaneous samples (specimen) ENTIRE PLACENTA / Unknown 07/25/2012 7:56 AM UNDERGRADUATE INTERN 07/26/2012 11:03 AM UNDERGRADUATE INTERN Irving Power MD LAB - PATHOLOGY/CYTO LOGY ORDERABLES Performing Organization Address City/State/[facility] Co de Phone Number [facility] [address] [place] [address]
--- OUTSIDE RECORDS SUMMARY | 2024-09-23 17:12 | XMS_ITS | Data Portability ---
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 Plan of Treatment Reminders Order Date Submit Date Provider Last Modified By Organization Details Last Modified Time Details Appointments None recorded. Lab culture, urine 2023 024 [email or web address] [facility], [address] [place], [address], 4 05:21:35 urinalysis, dipstick [address], [address] [place] [address], [address], 4 14:59:50 culture, urine 2023 024 [email or web address] [facility], [address] [place], [address], 4 11:57:44 urinalysis, dipstick [address], [address] [place] [address], [address], 4 12:50:30 bacterial vaginosis + vaginitis panel, vaginal 2023 024 [facility], [address] [place] [address], [address], 4 14:52:03 HPV E6+E7 mRNA, qualitative PCR, cervix 2024 025 [facility], [address] [place], [address], 5 10:36:14 pap, LB 2024 025 [place] [facility], [address] [facility], [place], [address], 5 10:32:18 Referral None recorded. Procedures None recorded. Surgeries None recorded. Imaging None recorded. Medication Orders Pyridium 200 mg tablet 2023 024 [place] [id number], [address] [place], [place], [id number], 4 11:01:20 Patient TargetsNo targets recorded. Patient InstructionsNo instructions recorded. Reason for Referral None Reported. Results Created Date Observation Date Name Description Value Unit Range Abnormal Flag Note LastModifiedBy Organization Detail LastModifiedTime 12/29/1901/03/2024 TISSU E PATHO LOGY clinical information Abnor mal travisi ng on evalu ation proce dure, vagin al high risk human papil lomav irus (HPV) DNA test posit malik Not Available [email or web address] [address] [place], [address], 01/03/2024 18:57:52 12/29/19 24 01/03/2024 TISSU E PATHO LOGY pathologist Tarah miller MD Board Certi fied in Anato yandy Patho logy and Clini alan Patho logy (elec troni c signa ture) Not Available [facility] [address] [place], [address], 01/03/2024 18:57:52 12/29/19 24 01/03/2024 TISSU E PATHO LOGY report notes This test was perfo rmed using a kit that has not been clear ed or appro romero by the FDA. The wolf tical perfo rmanc e alex cteri stics of this test have been deter mined by Darby Romero. Perfo rmanc e alex cteri stics refer to the wolf tical perfo rmanc e of the test. Not Available [email or web address] [place] [address] [place], [address], 01/03/2024 18:57:52 12/29/19 24 01/03/2024 TISSU E PATHO LOGY A source Cervi x, 9 o'fransisco ck, biops y Not Available [facility] [place] [address] [place], [address], 01/03/2024 18:57:52 12/29/19 24 01/03/2024 TISSU E PATHO LOGY A gross description Speci men is recei romero in 10% neutr al buffe red forma nathalia, label ed with multi ple patie nt ident ifier s and consi sts of multi ple fragm ents of mucoi d mater ial aggre gatin g to 0.1 x 0.1 x 0.1 cm, irreg ular in shape and yello w-whi te in color . The speci men is entir abigail submi tted in one casse tte. Speci men may not survi ve while proce ssing . Gross exam( s) perfo rmed at: [facility] [address] [place] [address] [place] [address] Labor atory Direc tor: ANY Cooper MD Not Available [facility] [address] [place], [address], 01/03/2024 18:57:52 12/29/19 24 01/03/2024 TISSU E PATHO LOGY A diagnosis Small fragm ents of react malik and metap lasti c squam ous epith elium . Trans forma tion zone not ident ified . Not Available [place] [address] [place], [address], 01/03/2024 18:57:52 12/29/19 24 01/03/2024 TISSU E PATHO LOGY B source Cervi x, 12 o'fransisco ck, biops y Not Available [facility] [address], [address], 01/03/2024 18:57:52 12/29/19 24 01/03/2024 TISSU E PATHO LOGY B gross description Speci men is recei romero in 10% neutr al buffe red forma nathalia, label ed with multi ple patie nt ident ifier s and consi sts of one fragm ent of tissu e measu ring 0.6 x 0.2 x 0.2 cm, irreg ular in shape and yello w-whi te in color . The speci men is entir abigail submi tted in one casse tte. 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 Not Available [address], [address], 01/03/2024 18:57:52 12/29/19 24 01/03/2024 TISSU E PATHO LOGY B comment Immun ostai n p16 suppo rts the diagn osis (all posit malik and requi red negat malik contr ols stain ed appro priat abigail). Not Available [facility] [address], [address], 01/03/2024 18:57:52 12/29/19 24 01/03/2024 TISSU E PATHO LOGY C source Endoc ervix , curet tage Not Available [email or web address] [address], [place], [address], 01/03/2024 18:57:52 12/29/19 24 01/03/2024 TISSU E PATHO LOGY C gross description Speci men is recei romero in 10% neutr al buffe red forma nathalia, label ed with multi ple patie nt ident ifier s and consi sts of multi ple fragm ents of mucoi d mater ial aggre gatin g to 0.9 x 0.5 x 0.1 cm, irreg ular in shape and clark-b rown in color . The speci men is entir abigail submi tted in one casse tte. Not Available [facility] - [address], [address], 01/03/2024 18:57:52 12/29/19 24 01/03/2024 TISSU E PATHO LOGY C diagnosis Scant benig n strip s of endoc ervic al gland s, react malik and metap lasti c squam ous epith elium . Not Available [facility] - [address], [address], 01/03/2024 18:57:52 02/06/20 24 02/08/2024 CULTU RE, URINE , ROUTI NE culture, urine, routine SEE NOTE abnormal CULTU RE, URINE , ROUTI NE Micro Numbe r: [id number] Test Statu s: Final Speci men Sourc e: Urine Speci men Quali ty: Adequ ate Resul t: Great er than 100,0 00 CFU/m L of Staph yloco ccus sapro phyti cus The [facility] ([facility] ) does not advis e routi ne susce ptibi lity testi ng of urine isola jeffery of S. sapro phyti cus becau se infec tions respo nd to urina ry tapan ntrat ions of agent s commo nly used to treat acute , uncom plica autumn UTI such as nitro furan toin, trime thopr im-shelley lfame thoxa zole or a fluor oquin olone . Not Available [facility] [address] [place], [address], 02/08/2024 05:21:35 02/06/20 24 02/06/2024 urina lysis , dipst ick Leukocytes Trace Not Available [place] [address], [place], [address], 02/06/2024 14:44:43 02/06/20 24 02/06/2024 urina lysis , dipst ick Nitrite negati ve Not Available [place] [address], [place], [address], 02/06/2024 14:44:43 02/06/20 24 02/06/2024 urina lysis , dipst ick Protein 30 Not Available [address], [place], [address], 02/06/2024 14:44:43 02/06/20 24 02/06/2024 urina lysis , dipst ick pH 6.5 Not Available [address], [place], [address], 02/06/2024 14:44:43 02/06/20 24 02/06/2024 urina lysis , dipst ick Blood Negati ve Not Available [address], [place], [address], 02/06/2024 14:44:43 02/06/20 24 02/06/2024 urina lysis , dipst ick Specific [place] 1.020 Not Available [place] [address], [place], [address], 02/06/2024 14:44:43 02/06/20 24 02/06/2024 urina lysis , dipst ick Ketone Small Not Available [address], [place], [address], 02/06/2024 14:44:43 02/06/20 24 02/06/2024 urina lysis , dipst ick Bilirubin Negati ve Not Available [address], [address], 02/06/2024 14:44:43 02/06/20 24 02/06/2024 urina lysis , dipst ick Glucose Negati ve Not Available [address], [address], 02/06/2024 14:44:43 02/06/20 24 02/06/2024 urina lysis , dipst ick Appearance Slight ly Cloudy Not Available [address], [address], 02/06/2024 14:44:43 02/06/20 24 02/06/2024 urina lysis , dipst ick Color Yellow Not Available [address], [address], 02/06/2024 14:44:43 02/21/20 24 02/23/2024 CULTU RE, URINE , ROUTI NE culture, urine, routine SEE NOTE abnormal CULTU RE, URINE , ROUTI NE Micro Numbe r: [id number] Test Statu s: Final Speci men Sourc e: Urine Speci men Quali ty: Adequ ate Resul t: Great er than 100,0 00 CFU/m L of Staph yloco ccus sapro phyti cus [facility] ([facility] ) does not advis e routi ne susce ptibi lity testi ng of urine isola jeffery of S. sapro phyti cus becau se infec tions respo nd to urina ry tapan ntrat ions of agent s commo nly used to treat acute , uncom plica autumn UTI such as nitro furan toin, trime thopr im-shelley lfame thoxa zole or a fluor oquin olone . Not Available [facility] [address] [place], [address], 02/23/2024 11:57:43 02/21/20 24 02/27/2024 VAGIN ITIS PLUS STD PANEL bacterial vaginosis BV neg negati ve normal Not Available [address], [address], 02/27/2024 14:52:03 02/21/20 24 02/27/2024 VAGIN ITIS PLUS STD PANEL christine species C. spp neg negati ve normal Not Available [address], [address], 02/27/2024 14:52:03 02/21/20 24 02/27/2024 VAGIN ITIS PLUS STD PANEL christine glabrata C. gla neg negati ve normal Not Available [address], [address], 02/27/2024 14:52:03 02/21/20 24 02/27/2024 VAGIN ITIS PLUS STD PANEL trichomonas vaginalis CV/TV TRICH neg negati ve normal Not Available [address], [address], 02/27/2024 14:52:03 02/21/20 24 02/27/2024 VAGIN ITIS PLUS STD PANEL chlamydia trachomatis CT neg negati ve normal This repor t is inten ded for us in clini alan monit oring and manag ement of rolando casanova. It is not inten ded for use in medic al-le gal appli catio n. Not Available [address], [address], 02/27/2024 14:52:03 02/21/20 24 02/27/2024 VAGIN ITIS PLUS STD PANEL neisseria gonorrhoeae GC neg negati ve normal This repor t is inten ded for us in clini alan monit oring and manag ement of rolando casanova. It is not inten ded for use in medic al-le gal appli catio n. Not Available [facility], [place], [address], 02/27/2024 14:52:03 02/21/20 24 02/21/2024 urina lysis , dipst ick Leukocytes Trace Not Available [address], [place], [address], 02/21/2024 12:18:36 02/21/20 24 02/21/2024 urina lysis , dipst ick Nitrite negati ve Not Available [address], [place], [address], 02/21/2024 12:18:36 02/21/20 24 02/21/2024 urina lysis , dipst ick Urobilinogen .2 Not Available [facility], [place], [address], 02/21/2024 12:18:36 02/21/20 24 02/21/2024 urina lysis , dipst ick Protein Trace Not Available [address], [place], [address], 02/21/2024 12:18:36 02/21/20 24 02/21/2024 urina lysis , dipst ick pH 6.5 Not Available [address], [address], 02/21/2024 12:18:36 02/21/20 24 02/21/2024 urina lysis , dipst ick Blood Large Not Available [address], [place], [address], 02/21/2024 12:18:36 02/21/20 24 02/21/2024 urina lysis , dipst ick Specific [place] 1.005 Not Available [address], [place], [address], 02/21/2024 12:18:36 02/21/20 24 02/21/2024 urina lysis , dipst ick Ketone Negati ve Not Available [address], [place], [address], 02/21/2024 12:18:36 02/21/20 24 02/21/2024 urina lysis , dipst ick Bilirubin Negati ve Not Available [address], [place], [address], 02/21/2024 12:18:36 02/21/20 24 02/21/2024 urina lysis , dipst ick Glucose Negati ve Not Available [address], [place], [address], 02/21/2024 12:18:36 02/21/20 24 02/21/2024 urina lysis , dipst ick Appearance Slight ly Cloudy Not Available [address], [place], [address], 02/21/2024 12:18:36 02/21/20 24 02/21/2024 urina lysis , dipst ick Color Yellow Not Available [address], [place], [address], 02/21/2024 12:18:36 09/10/19 25 09/13/2024 THINP REP TIS PAP clinical information: normal None given Not Available [facility] [address] [place], [address], 09/13/2024 10:32:18 09/10/19 25 09/13/2024 THINP REP TIS PAP LMP: normal None given Not Available [address], [address], 09/13/2024 10:32:18 09/10/19 25 09/13/2024 THINP REP TIS PAP prev. Pap: normal None given Not Available [address], [address], 09/13/2024 10:32:18 09/10/19 25 09/13/2024 THINP REP TIS PAP prev. BX: normal None given Not Available [address], [address], 09/13/2024 10:32:18 09/10/19 25 09/13/2024 THINP REP TIS PAP source: normal Cervi x Not Available [address], [address], 09/13/2024 10:32:18 09/10/19 25 09/13/2024 THINP REP TIS PAP statement of adequacy: normal Satis facto ry for evalu ation . Endoc ervic al/tr ansfo rmati on zone compo nent prese nt. Age and/o r menst rual statu s not provi ded Not Available [address], [address], 09/13/2024 10:32:18 09/10/19 25 09/13/2024 THINP REP TIS PAP general categorizati on: abnormal Cytol ogy Resul ts: Epith elial Cell Abnor malit y Not Available [address], [address], 09/13/2024 10:32:18 09/10/19 25 09/13/2024 THINP REP TIS PAP interpretati on/result: abnormal Atypi alan Squam ous Cells of Undet ermin ed Signi fican ce (ASC- [place]) Not Available [place] [address] [place], [address], 09/13/2024 10:32:18 09/10/19 25 09/13/2024 THINP REP TIS PAP comment: normal This Pap test has been evalu ated with compu ter tayler autumn techn ology . [facility]ge st clini alan corre latio n and follo w-up as clini mic appro priat e Not Available [place] [address] [place], [address], 09/13/2024 10:32:18 09/10/19 25 09/13/2024 THINP REP TIS PAP cytotechnolo gist: normal ABC, CT( CP) CT scree kelly locat ion: [place] [address] [place] [address] Not Available [place] [address] [place], [address], 09/13/2024 10:32:18 09/10/19 25 09/13/2024 THINP REP TIS PAP pathologist: normal Phoebe vega M.D., Board Certi fied in Anato yandy Patho logy and Cytop athol ogy. Phone : [phone] (elec troni c signa ture) Not Available [place] [address] [place], [address], 09/13/2024 10:32:18 09/10/19 25 09/13/2024 THINP REP TIS PAP comment EXPLA NATOR Y NOTE: The Pap is a scree kelly test for cervi alan cance r. It is not a diagn ostic test and is subje ct to false negat malik and false posit malik resul ts. It is most relia ble when a satis facto ry sampl e, regul rebecca obtai adia, is submi tted with relev ant clini alan findi ngs and histo ry, and when the Pap resul t is evalu ated along with histo barbara and curre nt clini alan infor matio n. Not Available [email or web address] [address] [place], [address], 09/13/2024 10:32:18 09/10/19 25 09/14/2024 HPV GENOT YPE HPV 16 Negati ve negati ve normal Not Available [address], [address], 09/16/2024 10:36:13 09/10/19 25 09/14/2024 HPV GENOT YPE HPV 18/45 Negati ve negati ve normal Assay can diffe renti ate HPV 16 from HPV 18 and/o r HPV 45. But canno t diffe renti ate betwe en 18 and 45. Not Available [address], [address], 09/16/2024 10:36:13 09/10/19 25 09/13/2024 HPV HIGH RISK HPV high risk POSITI VE negati ve abnormal The HPV High Risk assay is inten ded for use as co-te sting with cytol ogy and not as a subst itute for regul ar cervi alan cytol ogy scree kelly. This assay is not inten ded for use as a scree kelly devic e for women under age 30 with phoebe l cervi alan cytol ogy. Not Available [address], [address], 09/16/2024 10:36:14 Result Notes None recorded. Problems Name Problem SNOMED Code Status Onset Date Resolution Date Notes Provider Name and Address Organization Details Recorded Time Sampling of vagina for Papanico laou smear Completed 201808/18/2021 Encounte r for gynecolo gical examinat ion (general ) (routine ) without abnormal findings ; Severity : Moderate Progress : Stable Added By: Lydia Adams Add to Current Problems : YES ProblemS tatus: Current NANCY GURVINDERKriss ALLEN, [address] [facility], [place], [address] , [place] [employer] [facility] IV 1 00:06:39 Finding of pattern of menstrua l cycle Completed 202008/18/2021 Other specifie d irregula r menstrua tion; Severity : Moderate Progress : Stable Added By: Anjali Sepulveda Add to Current Problems : YES ProblemS tatus: Current NANCY ALLEN, [facility] [place], [address] , [facility] [employer] [facility] IV 1 00:06:26 Leukorrh ea [id number] Completed 201702/20/2019 Vaginal Discharg e; Progress : Stable Added By: Shelton Sinclair Add to Current Problems : NO ProblemS tatus: Resolve Not Available [facility] 2 19:09:55 Pain of breast [id number] Completed 201908/18/2021 Mastodyn ia; Severity : Moderate Progress : Stable Added By: Christal May Add to Current Problems : YES ProblemS tatus: Current NANCY ALLEN, [address], [address] , [facility] [employer] [facility] IV 1 00:06:35 Radiolog ic finding [id number] Completed 202008/18/2021 Other abnormal and inconclu sive findings on diagnost ic imaging of breast; Severity : Moderate Progress : Stable Added By: Mary Andrews Add to Current Problems : YES ProblemS tatus: Current [facility] [place], [address] , [facility] [employer] [facility] IV 1 00:06:14 Vaginola bial hernia Completed 201702/28/2019 Other specifie d noninfla mmatory disorder s of vagina; Severity : Moderate Progress : Stable Added By: Simone Baum Add to Current Problems : YES ProblemS tatus: Current Vaginal Discharg e; Location : None Severity : Moderate Progress : Stable Added By: Shelton Sinclair Add to Current Problems : YES ProblemS tatus: Resolve Nidia jules, [place] - [employer] [facility] 2 19:13:40 Low back pain [id number] Completed 201702/20/2019 Low back pain; Progress : Stable Added By: Kim Anderson Add to Current Problems : NO ProblemS tatus: Resolve Low back pain; Location : None Progress : Stable Added By: Kim Anderson Add to Current Problems : YES ProblemS tatus: Current Marlen Severino null, [employer] IV 3 18:07:05 Finding of desire for urinatio n [id number] Completed 201908/18/2021 Urgency of urinatio n; Severity : Moderate Progress : Stable Added By: Lydia Adams Add to Current Problems : YES ProblemS tatus: Current NANCY ALLEN, [facility] [address] [place], [address] , [employer] IV 1 00:06:22 Family history of breast cancer [id number] Completed 201908/18/2021 Family history of malignan t neoplasm of breast; Severity : Moderate Progress : Stable Added By: Lydia Adams Add to Current Problems : YES ProblemS tatus: Current NANCY ALLEN, [facility] [address] [place], [address] , [employer] IV 1 00:06:17 Vulvovag initis [id number] Completed 201710/13/2018 Other specifie d inflamma tion of vagina and vulva; Progress : Stable Added By: Kim Anderson Add to Current Problems : NO ProblemS tatus: Resolve Vagintiu s Unspecif ied; Location : None Progress : Stable Added By: Kim Anderson Add to Current Problems : YES ProblemS tatus: Resolve Not Available [employer] 2 19:09:59 Acute vaginiti s [id number] Completed 201805/23/2022 Acute vaginiti s; Progress : Stable Added By: Lydia Adams Add to Current Problems : YES ProblemS tatus: Current Niidasalvador De Paz null, [employer] IV 2 14:53:00 Syphilis test finding [id number] Completed 201708/18/2021 Encounte r for screenin g for infectio ns with a predomin antly sexual mode of transmis jd; Severity : Moderate Progress : Stable Added By: Yessenia Westbrook Add to Current Problems : YES ProblemS tatus: Current NANCY ALLEN, SHERRIE [address] [facility], [place], [address] , [facility] [employer] IV 1 00:06:42 Christine infectio n of genital region Completed 201908/18/2021 Candidia sis of vulva and vagina; Severity : Moderate Progress : Stable Added By: Kath Mann i Add to Current Problems : YES ProblemS tatus: Current NANCY ALLEN, [facility] [address] [facility], [place], [address] , [facility] [employer] IV 1 00:06:10 Finding of pattern of menstrua l cycle [id number] Completed 202008/18/2021 Excessiv e and frequent menstrua tion with irregula r cycle; Severity : Moderate Progress : Stable Added By: Anjali Sepulveda Add to Current Problems : YES ProblemS tatus: Current NANCY ALLEN, [facility] [address] [facility], [place], [address] , [facility] [employer] IV 1 00:06:29 Increase d frequenc y of urinatio n [id number] Completed 201702/20/2019 Urinary frequenc y; Progress : Stable Added By: Shelton Sinclair Add to Current Problems : NO ProblemS tatus: Resolve Frequenc y of micturit ion; Progress : Stable Added By: Ann-Marie Antunez Add to Current Problems : YES ProblemS tatus: Current Urinary frequenc y; Location : None Progress : Stable Added By: Shelton Sinclair Add to Current Problems : YES ProblemS tatus: Current Not Available [facility] 2 19:09:57 Dysuria [id number] Completed 201703/12/2018 Dysuria; Location : None Severity : Moderate Progress : Stable Added By: Stacy Vincent Add to Current Problems : YES ProblemS tatus: Resolve Dysuria; Severity : Moderate Progress : Stable Added By: Ann-Marie Antunez Add to Current Problems : YES ProblemS tatus: Current Painful micturit ion, unspecif ied; Severity : Moderate Progress : Stable Added By: Stacy Vincent Add to Current Problems : NO ProblemS tatus: Resolve Nidia Britsch null, [employer] [facility] IV 2 14:53:06 Pregnanc y [id number] Completed 202105/12/2022 Ramona Dickson icz null, [employer] IV 3 12:35:37 Venereal disease screenin g Completed 201702/20/2019 Screenin g for STDs; Progress : Stable Added By: Shelton Sinclair Add to Current Problems : NO ProblemS tatus: Resolve Screenin g for STDs; Location : None Progress : Stable Added By: Shelton Sinclair Add to Current Problems : YES ProblemS tatus: Current Not Available [facility] 2 19:09:55 Screenin g mammogra phy Completed 202005/23/2022 Encounte r for screenin g mammogra m for malignan t neoplasm of breast; Progress : Stable Added By: Tracy Rowe Add to Current Problems : YES ProblemS tatus: Current Nidia Britsch null, [employer] [facility] IV 2 14:53:12 Vaginola bial hernia Completed 201805/11/2022 Other specifie d noninfla mmatory disorder s of vagina; Progress : Stable Added By: Simone Baum Add to Current Problems : YES ProblemS tatus: Current Vaginal Discharg e; Location : None Progress : Stable Added By: Shelton Sinclair Add to Current Problems : YES ProblemS tatus: Resolve; Start Date : 05/29/20 18 Nidia Britsch null, [employer] 2 19:13:40 Dysuria [id number] Completed 201905/23/2022 Dysuria; Progress : Stable Added By: Stacy Vincent Add to Current Problems : NO ProblemS tatus: Resolve; Start Date : 01/12/20 18 Dysur ia; Progress : Stable Added By: Miles, Ronniesh a Add to Current Problems : YES ProblemS tatus: Current Painful micturit ion, unspecif ied; Progress : Stable Added By: Stacy Vincent Add to Current Problems : NO ProblemS tatus: Resolve; Start Date : 01/12/20 18 Nidia Britsch null, [place] [facility] 2 14:53:06 Past pregnanc y history of prematur e delivery [id number] Completed 1st was at 22 weeks and then 2 cerclage s and delivere d at 37 and 36 weeks and had 17 p shots with third preg and she had emergenc y cerclage w/2nd at 25 weeks Ernestina Mccarty, [facility] [address] [facility], [place], [address] , [place] [facility] IV 2 13:03:12 Threaten ed prematur e labor - not delivere d [id number] Completed 202105/23/2022 Nidia Britsch null[place] [facility] 2 14:52:53 History of operatio n on cervix in currentl y patient [id number] 9106 Completed 202105/23/2022 Nidia Britsch null, [place] [facility] 2 14:52:49 Cervical cerclage suture present [id number] Completed 202103/26/2022 Nidia Britsch null, [facility] 2 12:56:31 Prematur e labor [id number] Active 2021 Nidia Britsch null, [place] [facility] IV 2 14:53:17 Pregnanc y [id number] Completed 202206/06/2023 Ramona Randolph icz null, [place] [facility] IV 3 12:35:37 Past pregnanc y history of prematur e delivery [id number] Completed she had cerclage removed 04-12-23 Ramona Randolph icz null, [place] [facility] IV 3 12:35:33 growth restrict ion [id number] Completed 2022 MFM anatomy EFW 9%, MFM will F/U 02/01, Also for incomple te anatomy. Update 02/16: EFW <3%, elevated dopplars . MFM doing NST/BPP biweekly ., - efw 6% and soham =18 and s/d ratio [facility] [place] [facility] Ramona Dickson icz null, [place] [facility] IV 3 12:35:33 Elevated blood-pr essure reading without diagnosi s of hyperten jd [id number] Completed HELLP labs WNL @ 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 Procedures Surgical History Date Name Laterality Status Provider Name and Address Organization Details Recorded Time 024 Colposcopy - Cervix completed ARAM Malcolm [address] [place], [address], [facility] IV 12/29/2023 14:17:31 022 [place] Injection [place] Tara Lovell [facility] 03/18/2022 16:15:22 022 [place] Injection completed Alivia Raygoza [facility] 03/11/2022 17:17:02 022 [place] Injection completed Tara Lovell [facility] IV 03/04/2022 15:12:42 022 [place] Injection completed Tara Lovell [facility] IV 02/18/2022 11:20:15 022 [place] Injection completed GEORGINA RIGGS CNM [address] [place], [address], [place] [facility] IV 02/11/2022 10:50:40 022 [place] Injection completed Halie Smith [place] [facility] IV 02/04/2022 16:10:32 022 [place] Injection completed Tara Lovell [place] [facility] IV 01/28/2022 16:51:25 022 [place] Injection completed Tara Liliya [facility] 01/21/2022 16:46:57 022 [place] Injection completed Shazia Phipps [facility] 01/14/2022 11:01:48 022 [place] Injection completed Tara Lovell [facility] IV 01/07/2022 17:32:16 022 [place] Injection completed Santa Monique [place] [facility] IV 12/31/2021 14:47:37 022 [place] Injection completed Gianna Green [facility] IV 12/25/2021 15:46:23 022 [place] Injection completed Gianna Hughes [facility] IV 12/17/2021 11:39:28 022 [place] Injection completed Tara Lovell [place] [facility] IV 12/10/2021 15:00:03 022 [place] Injection completed Tara Stephens [place] [facility] IV 12/03/2021 16:12:23 loop electrosurgical excision procedure completed Taramikala Stephens [place] [facility] IV 03/25/2024 11:00:37 operative procedure on hand completed Mckenna Rivera [place] [facility] IV 09/08/2021 00:05:04 cerclage completed Nima Mcnamara MD [address] [facility], [place], [address], [place] [facility] 11/08/2022 14:34:12 Imaging Results None recorded. Procedure Notes None recorded. Medical Equipment None Reported. Allergies Allergen ID Allergen Name Allergen Category Reaction Reaction Severity Criticality Documentation Date Start Date Code Code System Note Provider Name and Address Organization Details Recorded Time 332700 strawberr y allergeni c extract food,medi cation Not available Not available Not available 06/11/20212017 08132 4 RxNorm Sever ity: Moder ate; Not Available Not Available Not Available 726564 dio allergeni c extract food,medi cation other severe Not available 06/11/20212017 44582 04 RxNorm Sever ity: Moder ate; - juanu nawaf herrera s. Not Available Not Available Not Available 415349 peanut allergeni c extract food,medi cation Not available Not available Not available 06/11/20212017 95637 8 RxNorm Sever ity: Sever e; Not Available Not Available Not Available 075636 morphine sulfate medicatio n Not available Not available Not available 06/11/20212017 04419 RxNorm Sever ity: Sever e; Not Available Not Available Not Available 108984 peanut allergeni c extract food,medi cation Not available Not available Not available 09/13/2021 83693 8 RxNorm Not Available Not Available Not Available 871998 morphine medicatio n hallucina tions other moderate moderate Not available 04/14/20222016 7052 RxNorm Other react ions and sever ities : 'Unkn own - Moder ate'. Not Available Not Available Not Available 388831 Anny villalta on food itching rash mild mild Not available 04/14/20222021 47004 0 RxNorm Not Available Not Available Not Available 039168 peanut oil food,medi cation dyspnea itching severe severe Not available 04/14/20222017 80411 RxNorm Not Available Not Available Not Available 181807 asparagus food itching mild Not available 02/06/2024 47788 UNK Not Available Not Available Not Available Medications Name Sig Start Date Stop Date Status Note LastModified by Organization Details LastModified Time nifedipin e ER 30 mg tablet,ex tended release 24 hr TAKE 1 TABLET BY MOUTH EVERY DAY active Not Available Not Available No t Available Prometriu m 200 mg capsule Take 1 capsule every day by oral route. 01/20 completed Not Available Not Available Not Available amoxicill in 500 mg capsule 01/20 completed Not Available Not Available Not Available medroxypr ogesteron e 10 mg tablet take 1 tablet (10 mg) by oral route once daily 09/15 completed Not Available Not Available Not Available metformin 500 mg tablet 03/31 completed Not Available Not Available Not Available prednison e 10 mg tablet 01/22 completed Not Available Not Available Not Available clindamyc in HCl 300 mg capsule TAKE 1 CAPSULE BY MOUTH EVERY 6 HOURS FOR 7 DAYS 09/15 completed Not Available Not Available Not Available famotidin e 10 mg tablet 10 mg twice a day by oral route. 03/31 completed Not Available Not Available Not Available citalopra m 40 mg tablet 09/06 completed Citalopr am Hydrobro mide 20mg Tablet RxNorm: 214584 Allow Substitu tion: True Refill Denied: No Refill Note: No cancel reason selected Refill DateOccu rred: 12/28/19 Not Available Not Available Not Available cetirizin e 10 mg tablet TAKE 1 TABLET BY MOUTH EVERY DAY. 09/09 completed Not Available Not Available Not Available fluconazo le 150 mg tablet TAKE 1 TABLET BY MOUTH NOW 03/11 completed Not Available Not Available Not Available hydrocodo ne 5 mg-acetam inophen 325 mg tablet TAKE 1 TABLET BY MOUTH EVERY 4 TO 6 HOURS NEEDED FOR PAIN 09/15 completed Not Available Not Available Not Available Nystop 100,000 unit/gram topical powder APPLY BETWEEN AND UNDER BREASTS TWICE DAILY FOR 10 DAYS 02/05 completed Not Available Not Available Not Available phenazopy ridine 200 mg tablet TAKE 1 TABLET BY MOUTH THREE TIMES DAILY FOR 3 DAYS 03/25 completed Not Available Not Available Not Available metronida zole 0.75 % (37.5 mg/5 gram) vaginal gel insert 1 applicat orl (37.5 mg) by vaginal route for five nights 09/09 completed metroNID AZOLE 0.75 % Vaginal Gel RxNorm: 085120 Allow Substitu tion: True Refill Denied: No Edited by: Lydia Robison ) on 09/09/19 Stopped by: Lydia Robison ) on 09/09/19 21 Not Available Not Available Not Available terconazo le 0.8 % vaginal cream insert 1 applicat orful by vaginal route once daily at bedtime for 7 days 02/23 completed terconaz ole 0.8 % Vaginal Cream RxNorm: 485538 Allow Substitu tion: True Refill Denied: No Edited by: Derrek(Camila Kovacs ) on 02/24/20 Stopped by: Derrek(Camila Kovacs ) on 02/24/20 Not Available Not Available Not Available metoclopr amide 5 mg/5 mL oral solution 4 times a day by oral route. 03/31 completed Not Available Not Available Not Available clindamyc in HCl 150 mg capsule TAKE 1 CAPSULE BY MOUTH EVERY 8 HOURS WITH MEALS FOR 6 DAYS 12/23 completed Not Available Not Available Not Available metronida zole 500 mg tablet TAKE 1 TABLET BY MOUTH TWICE DAILY 11/17 completed Not Available Not Available Not Available phentermi ne 37.5 mg tablet TAKE 1 TABLET BY MOUTH EVERY DAY FOR WEIGHT LOSS active Not Available Not Available No t Available nifedipin e ER 30 mg tablet,ex tended release TAKE 1 TABLET BY MOUTH EVERY DAY 01/22 completed Not Available Not Available Not Available acetamino phen 300 mg-codein e 30 mg tablet 01/22 completed Not Available Not Available Not Available ciproflox acin 500 mg tablet TAKE 1 TABLET BY MOUTH EVERY 12 HOURS FOR 7 DAYS 10/13 completed Not Available Not Available Not Available sulfameth oxazole 800 mg-trimet hoprim 160 mg tablet Take 1 tablet every 12 hours by oral route as directed for 7 days. 03/25 completed Not Available Not Available Not Available acetamino phen 500 mg tablet TAKE 2 TABLETS BY MOUTH EVERY 6 HOURS NEEDED FOR PAIN 06/06 completed Not Available Not Available Not Available triamcino lone acetonide 0.1 % topical cream APPLY TOPICALL Y TO THE AFFECTED AREA TWICE DAILY NEEDED 01/14 completed Not Available Not Available Not Available butalbita l-acetami nophen-ca ffeine 50 mg-325 mg-40 mg tablet TAKE 1 TABLET BY MOUTH TWICE DAILY NEEDED 03/15 completed Not Available Not Available Not Available hydrocort isone acetate 25 mg rectal supposito ry 25 mg twice a day by rectal route. 04/13 completed Not Available Not Available Not Available ketorolac 10 mg tablet TAKE 1 TABLET BY MOUTH EVERY 6 HOURS NEEDED FOR PAIN 10/13 completed Not Available Not Available Not Available ofloxacin 0.3 % ear drops INSTILL 10 DROPS IN AFFECTED EAR(S) ONCE DAILY FOR 10 DAYS 09/15 completed Not Available Not Available Not Available citalopra m 20 mg tablet 09/06 completed Citalopr am Hydrobro mide 20mg Tablet RxNorm: 352729 Allow Substitu tion: True Refill Denied: No Refill Note: No cancel reason selected Refill DateOccu rred: 12/28/19 18 Not Available Not Available Not Available prednisol one acetate 1 % eye drops,tessa pension SHAKE LIQUID AND INSTILL 1 DROP IN LEFT EYE FOUR TIMES DAILY 01/22 completed Not Available Not Available Not Available metoclopr amide 5 mg tablet TAKE 1 TABLET BY MOUTH EVERY 6 HOURS NEEDED 06/06 completed Not Available Not Available Not Available nifedipin e ER 60 mg tablet,ex tended release 24 hr TAKE 1 TABLET BY MOUTH EVERY DAY 01/22 completed Not Available Not Available Not Available nifedipin e 10 mg capsule 10 mg every 6 hours by oral route. 03/31 completed Not Available Not Available Not Available tobramyci n 0.3 % eye drops INSTILL 1 DROP IN RIGHT EYE EVERY 4 HOURS FOR 10 DAYS 01/22 completed Not Available Not Available Not Available triamcino lone acetonide 0.1 % topical ointment APPLY A THIN LAYER TO EARS TWICE DAILY FOR 5 DAYS THEN NEEDED 01/20 completed Not Available Not Available Not Available docusate sodium 100 mg capsule 100 mg twice a day by oral route. 04/13 completed Not Available Not Available Not Available sertralin e 25 mg tablet Take 25 mg by oral route. 05/12 completed Not Available Not Available Not Available hydroxyzi ne HCl 25 mg tablet TAKE 1 TABLET BY MOUTH EVERY DAY AT BEDTIME 01/22 completed Not Available Not Available Not Available mupirocin 2 % topical ointment apply a small amount to the affected area by topical route 3 times per day 09/15 completed mupiroci n 2 % Topical Ointment RxNorm: 051390 Allow Substitu tion: False Refill Denied: No Refill DateOccu rred: 09/09/19 21 Edited by: Anjali Rice) on 09/09/19 21 Stopped by: Anjali Rice) on Not Available Not Available Not Available azelastin e 137 mcg (0.1 %) nasal spray USE 2 SPRAYS IN EACH NOSTRIL TWICE DAILY 01/22 completed Not Available Not Available Not Available epinephri ne 0.3 mg/0.3 mL injection , auto-inje ctor INJECT INTO THE MUSCLE NEEDED FOR ANAPHYLA XIS active Not Available Not Available No t Available ibuprofen 600 mg tablet 600 mg every 6 hours by oral route. 04/13 completed Not Available Not Available Not Available Crinone 8 % vaginal gel Insert 1 applicat orful every day by vaginal route. 06/06 completed Not Available Not Available Not Available methylpre dnisolone 4 mg tablets in a dose pack 01/22 completed Not Available Not Available Not Available nifedipin e ER 60 mg tablet,ex tended release active Not Available Not Available Not Available fluticaso ne propionat e 50 mcg/actua tion nasal spray,tessa pension SHAKE LIQUID AND USE 2 SPRAYS IN EACH NOSTRIL EVERY DAY 06/06 completed Not Available Not Available Not Available Unisom (doxylami ne) 25 mg tablet Take 1 tablet every day by oral route at dinner. 03/11 completed Not Available Not Available Not Available Dermoplas t (with menthol) 20 %-0.5 % topical aerosol Apply 1 {spray} 4 times a day by topical route. 05/12 completed Not Available Not Available Not Available naproxen 500 mg tablet 01/22 completed Not Available Not Available Not Available mometason e 0.1 % topical cream APPLY THIN LAYER TOPICALL Y TO THE AFFECTED AREA DAILY active Not Available Not Available No t Available metoclopr amide 10 mg tablet TAKE 1 TABLET BY MOUTH FOUR TIMES DAILY NEEDED 03/11 completed Not Available Not Available Not Available amoxicill in 875 mg-potass ium clavulana te 125 mg tablet TAKE 1 TABLET BY MOUTH EVERY 12 HOURS 12/28 completed Not Available Not Available Not Available azithromy maximiliano 500 mg tablet 2 tabs PO now, with food. 11/11 completed Azithrom ycin 500mg Tablet RxNorm: 531796 Allow Substitu tion: True Refill Denied: No Not Available Not Available Not Available escitalop jessi 20 mg tablet take 1 tablet (20 mg) by oral route once daily 12/23 completed escitalo pram oxalate 20 mg oral tablet RxNorm: 066973 Allow Substitu tion: False Refill Denied: No Refill DateOccu rred: 09/09/19 Edited by: Lydia Robison ) on 09/09/19 Stopped by: Lydia Robison ) on Not Available Not Available Not Available ciproflox acin 0.3 %-dexamet hasone 0.1 % ear drops,tessa pension SHAKE LIQUID AND INSTILL 4 DROPS TO LEFT EAR TWICE DAILY FOR 7 DAYS 01/22 completed Not Available Not Available Not Available escitalop jessi 5 mg tablet TAKE 1 TABLET BY MOUTH EVERY DAY 12/23 completed Not Available Not Available Not Available cetirizin e 10 mg chewable tablet Chew 10 mg by oral route. 11/17 completed Not Available Not Available Not Available nitrofura ntoin monohydra te/macroc rystals 100 mg capsule TAKE 1 CAPSULE BY MOUTH EVERY 12 HOURS FOR 5 DAYS 03/25 completed Not Available Not Available Not Available Vitamins with Minerals 28 mg iron-800 mcg tablet Take 1 tablet every day by oral route. 10/11 completed Not Available Not Available Not Available chlorhexi dine gluconate 0.12 % mouthwash SWISH AND SPIT 15 ML BY MOUTH TWICE DAILY FOR 10 DAYS 08/17 completed Not Available Not Available Not Available Diflucan 1 p.o. now 02/12 completed Diflucan 150mg Tablet RxNorm: 923888 Allow Substitu tion: True Refill Denied: No Not Available Not Available Not Available Augmentin 1 po BID x 7 days 02/12 completed Augmenti n 875mg/12 5mg Tablet RxNorm: 041941 Allow Substitu tion: True Refill Denied: No Not Available Not Available Not Available cetirizin e-pseudoe phedrine 09/15 completed cetirizi ne-pseud oephedri ne RxNorm: 196202 Allow Substitu tion: False Refill Denied: No Refill DateOccu rred: 12/31/19 Edited by: Clark marrufo(Schifa no, Anja B) on 12/31/19 Stopped by: Clark marrufo(Schifa no, Anja B) on Not Available Not Available Not Available fluticaso ne furoate 09/09 completed fluticas one furoate RxNorm: 912127 Allow Substitu tion: False Refill Denied: No Refill DateOccu rred: 03/27/20 Edited by: Lydia Robison ) on 09/09/19 Stopped by: Lydia Robison ) on 09/09/19 Not Available Not Available Not Available FeroSul 325 mg (65 mg iron) tablet TAKE 1 TABLET BY MOUTH DAILY WITH BREAKFAS T 06/06 completed Not Available Not Available Not Available ferrous sulfate 15 mg iron (75 mg)/mL oral drops 10/13 completed Not Available Not Available Not Available Korin 250 mg/mL intramusc ular oil Inject 1 mL every week by intramus cular route. 10/13 completed Not Available Not Available Not Available Nexplanon 68 mg subdermal implant Inject by subcutan eous route. active Not Available Not Available No t Available 28 mg iron-800 mcg tablet TAKE 1 TABLET BY MOUTH EVERY DAY 10/11 completed Not Available Not Available Not Available Lomedia 24 Fe 09/06 completed Lomedia 24 Fe Tablet RxNorm: 7622350 Allow Substitu tion: True Refill Denied: No Refill Note: No cancel reason selected Refill DateOccu rred: 12/28/19 Not Available Not Available Not Available potassium chloride ER 20 mEq tablet,ex tended release Take 1 tablet every day by oral route. 06/06 completed Not Available Not Available Not Available magnesium citrate 125 mg capsule Take 1 capsule twice a day by oral route. 06/06 completed Not Available Not Available Not Available Korin (PF) 275 mg/1.1 mL subcutane ous auto-inje ctor Inject 1.1 mL every week by subcutan eous route as directed . 01/20 completed Not Available Not Available Not Available Slynd 4 mg (28) tablet Take 1 tablet every day by oral route. 01/22 completed Not Available Not Available Not Available ID NOW COVID-19 Test Kit TEST DIRECTED 08/17 completed Not Available Not Available Not Available Pepcid AC Maximum Strength 20 mg tablet every 12 hours by oral route. 04/02 completed Not Available Not Available Not Available Vitals Date Recorded Body height Provider Name an d Address Organization Details Last Updated DateTime 01/23/2024 160.02 cm Juanjose Childress [employer] [facility] 01/23/2024 11:54:36 Date Recorded Body mass index (BMI) Body weight Body temperature Systolic blood pressure Diastolic blood pressure Provider Name and Address Organization Details Last Updated DateTime 01/23/2024 48.3 kg/m2 988924. 28 g 98.1 [degF] 140 mm[Hg] 82 mm[Hg] Shiracharmaine Torres [employer] [facility] IV 4 11:59:05 Date Recorded Body height Body mass index (BMI) Body weight Systolic blood pressure Diastolic blood pressure Provider Name and Address Organization Details Last Updated DateTime 02/06/2024 160.02 cm 48.9 kg/m2 605294.2 1 g 138 mm[Hg] 76 mm[Hg] Norah Brito [employer] [facility] IV 4 14:39:43 Date Recorded Body height Body mass index (BMI) Body weight Body temperature Systolic blood pressure Diastolic blood pressure Provider Name and Address Organization Details Last Updated DateTime 160.02 cm 48.4 kg/m2 579383. 72 g 97 [degF] 130 mm[Hg] 70 mm[Hg] Lizajosemanuel Ericka [employer] [facility] IV 4 12:33:44 Date Recorded Body height Body mass index (BMI) Body weight Body temperature Systolic blood pressure Diastolic blood pressure Provider Name and Address Organization Details Last Updated DateTime 160.02 cm 49.2 kg/m2 066861. 68 g 98 [degF] 130 mm[Hg] 74 mm[Hg] Tara Foremanlister [employer] IV 4 10:58:51 Date Recorded Body height Body mass index (BMI) Body weight Systolic blood pressure Diastolic blood pressure Provider Name and Address Organization Details Last Updated DateTime 09/10/2024 160.02 cm 50.5 kg/m2 642405.5 4 g 128 mm[Hg] 78 mm[Hg] Norah Brito [employer] [facility] IV 5 16:45:23 Social History Question Answer Notes LastModified by Organizat ion Details LastModified Time Tobacco Smoking Status Former Smoker Halie Urrutiazofianawaf jorge a, [employer] IV 09/13/2021 14:33:55 What Is Your Level Of Alcohol Consumption? Occasional Information not available 09/13/2021 How Many Years Have You Consumed Alcohol? 9 Information not available 09/13/2021 Are You Blind Or Do You Have Difficulty Seeing? No Information not available 01/14/2022 Are You Currently Employed? Yes Information not available 10/26/2022 Are You Deaf Or Do You Have Serious Difficulty Hearing? No Information not available 01/14/2022 What Type Of Diet Are You Following? REGULAR Information not available 09/13/2021 Do You Or Have You Ever Used E-cigarettes Or Vape? Never Used Electronic Cigarettes Information not available 09/13/2021 How Many Children Do You Have? 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 Single Information not available 09/13/2021 Are You Sexually Active? Yes [email or web address] Information not available 09/08/2021 Do You Use Any Illicit Or Recreational Drugs? No Information not available 01/14/2022 Do You Or Have You Ever Used Any Other Forms Of Tobacco Or Nicotine? No Information not available 01/14/2022 Sex: Female Functional Status Question Answer Note LastModified by Organizat ion Details LastModified Time What is your exercise level? Occasional Information not available 09/13/2021 Mental Status None recorded. Family History Relationship Description Onset Age of this Age Resolved Age Notes LastModified by Organization Details LastModified Time Father Alzheimer's disease [email or web address] Not available 2021 14:33:55 Father Diabetes mellitus [email or web address] Not available 2021 14:33:55 Father Heart disease ricenogle Not available 2021 14:33:55 Paternal Grandfather Malignant neoplastic disease ricenogle Not available 2021 14:33:55 Unspecified Relation Malignant tumor of breast ricenogle Not available 2021 14:33:55 Paternal Grandmother Cerebrovascu lar accident ricenogle Not available 14:33:55 Paternal Grandmother Diabetes mellitus ricenogle Not available 2021 14:33:55 Paternal Grandmother Hypertensive disorder ricenogle Not available 2021 14:33:55 Sister Malignant tumor of breast ricenogle Not available 2021 14:33:55 Medical History Condition Response High Blood Pressure Y Cytomegalovirus N Hyperthyroidism N MRSA N Blood Transfusion N Depression N Incontinence N Anxiety Disorder N Autoimmune disease N Arthritis N Polycystic Ovarian Syndrome N Hematuria N Varicosities N Stroke N Crohn's Disease N Seasonal allergies N Alzheimer's/Dementia N COPD/Emphysema N History of Abnormal Pap N Fibromyalgia N Kidney Infection N Kidney Disease N Gallbladder disease N Von Willebrand disease N Eating Disorder N Diabetes Mellitus (non-insulin dependent ) N Ovarian Problems N Frequent Urinary Tract infections N Osteopenia N GERD (reflux) N Diabetes (insulin dependent) N Asthma N Heart Attack N Endometrial Cancer N Hepatitis N Pulmonary Embolism N RPR N Chicken Pox N Other Cancer N Colon Cancer N Breast Cancer N Herpes (HSV) N Lung Cancer N Hypothyroidism N Panic Attacks N Neurological Disorder N Deep Vein Thrombosis N Tuberculosis/Positive PPD N Shingles N Cervical Cancer N Chlamydia N HPV/Genital Warts N Endometriosis N IBS (Irritable Bowel Syndrome) N High Cholesterol N Liver Disease N Ulcer N HIV N Sickle Cell Disease/Trait N ADD/ADHD N Anemia N Multiple Sclerosis N Gonorrhea N Headaches/migraines N Ovarian Cancer N Seizures/Epilepsy N Fibroids N Lupus N Rubella N Blood Clotting Disorder N Bipolar Disorder N Diabetes Mellitus (during ) N Ulcerative Colitis N Heart Disease N Osteoporosis N Gynecological History Statement/Question Response Date of Last Colonoscopy Flow Heavy Frequency of Cycle (Q days) Unknown Most Recent Bone Density HPV Vaccine N Date of Last Pap Smear Duration of Flow (days) 4 Most Recent Mammogram Current Control Method Implant Age at Menarche 12 Obstetrics History GPAL:G 5 P 1 3 1 3 Type Value Full Term 1 Spontaneous 1 Premature 3 Living 3 Total 5 Past Encounters Encounter ID Performer Location Encounter Start Date Encounter Closed Date Diagnosis/Indication Diagnosis SNOMED-CT Code Diagnosis ICD10 Code Diagnosis Note [id number] NANCY ALLEN [facility] [address] [place] [address] 08/17/2021 15:59:52 08/19/2021 00:11:16 Dysuria [id number] R30.9 treatment pending results. encouraged AZO PRN and push H2O [id number] [facility] [address] [place] [address] 0 09/08/2021 11:38:36 09/08/2021 12:46:07 Missed period [id number] N92.5 S/S SAB and when to seek emergency care reviewed. RTC 2 weeks for repeat TVUS. Quant today, monday, and next . [id number] NANCY ALLEN CNM [facility] [address] [place] [address] 09/13/2021 14:30:47 09/22/2021 14:14:21 Threatened miscarriage in first trimester 00646761 O20.0 Routine an tenatal care 244889734 Z34.81 [id number] [facility] [address] [place] [address] 09/20/2021 14:29:53 09/20/2021 22:18:22 Gestation period, 7 weeks 21163209 Z3A.01 Normal pre gnancy in multigravida 9570404183 89733 Z34.81 [id number] [facility] [address] [place] [address] 10/28/2021 14:07:45 11/11/2021 15:08:47 Short cervical length in 175872660 O26.879 Normal pre gnancy in multigravida 5157522644 38277 Z34.81 Gestation period, 13 weeks 18893250 Z3A.13 [id number] Nima Mcnamara MD [facility] [address] [place] [address] 11/10/2021 15:01:43 11/26/2021 13:41:16 Hyperemesis gravidarum 27475299 O21.0 Past pregn fuentes history of premature labor 249983046 Z87.51 Female str ess incontinence 79266817 N39.3 [id number] [facility] [address] [place] [address] 12/03/2021 14:45:12 12/16/2021 11:58:52 Short cervical length in 204085096 O26.879 Screening for disorder 850127765 Z11.3 N89.9 Normal pre gnancy in multigravida 9285100926 68877 Z34.81 Gestation period, 18 weeks 70420517 Z3A.18 [id number] [facility] [address] [place] [address] 12/10/2021 14:43:03 12/10/2021 16:11:11 [id number] [facility] [address] [place] [address] 12/17/2021 11:17:03 12/17/2021 12:08:00 Injection given 716780021 Z98.137 [id number] [facility] [address] [place] [address] 12/23/2021 12:02:21 12/23/2021 13:19:32 screening for malformation 296662050 Z36.3 Gestation period, 20 weeks 13770161 Z3A.20 Normal pre gnancy in multigravida 6756827507 37561 Z34.81 Gastroesop hageal reflux disease 732677440 K21.9 [id number] [facility] [address] [place] [address] 12/24/2021 15:31:37 12/24/2021 18:07:34 Past history of premature delivery 881720588 Z87.51 [id number] Nima Mcnamara MD [facility] h [address] [place] [address] 12/31/2021 14:31:43 01/03/2022 10:33:11 Hormone replacement therapy 548008239 Z79.296 [id number] GEORGINA [facility]IGGS [facility] [address] [place] [address] 01/07/2022 15:54:23 01/07/2022 16:02:26 [id number] Nima Ledesma DO [facility] [place] [address] [place] [address] 01/14/2022 10:10:26 01/18/2022 10:02:22 Gestation period, 24 weeks 824575625 Z3A.24 Routine an [facility] care 769813900 Z34.82 screening for malformation 981276149 Z36.3 Past pregn fuentes history of premature labor 465739977 Z87.51 [id number] GEORGINA RIGGS CNM [facility] [address] [place] [address] 01/21/2022 16:29:00 01/21/2022 16:36:40 [id number] ASHA PRINGLE MD [facility] [address] [place] [address] 01/28/2022 16:32:58 01/28/2022 16:36:07 Injection given 636431781 Z98.152 [id number] Nima Mcnamara MD [facility] [address] [place] [address] 02/04/2022 15:39:07 02/04/2022 15:49:01 Past history of premature labor 200195658 Z87.51 [id number] [facility]GINA [facility]GS [facility] [address] [place] [address] 02/11/2022 10:21:44 02/11/2022 10:56:12 Routine care 908584043 Z34.03 Z34.83 O09.513 O09.523 28 week labs collected Depression screening 171 366450 Z13.31 Gestation period, 28 weeks 68630151 Z3A.28 IUP @ 28+ wks. No OB complaints . Denies ptl s/s Labs, TDaP today. mood stable. RTO 2 wks Heartburn 09763273 R12 taking pepcid with diet and lifestyle modifcatio ns. Vaginitis 55890327 N76.0 thick white vaginal discharge with irritaiton . rx and sureswab sent. [id number] Nima Mcnamara MD [facility] [address] [facility] [place] [address] 02/18/2022 11:16:25 03/07/2022 11:23:48 Past history of premature labor 056398970 Z87.51 [id number] GEORGINA RIGGS CNM [facility] [address] [place] [address] 02/25/2022 14:03:27 02/25/2022 14:35:52 Gestation period, 30 weeks 86406652 Z3A.30 IUP @ 30+ wks. Complaints of vaginal itching sureswab sent. RTO 2 wks. Infection screening 2437 02999 Z11.9 [id number] ASHA PRINGLE MD [facility] [address] [place] [address] 03/04/2022 14:58:14 03/07/2022 09:27:29 High risk due to history of labor 519412666 O09.105 [id number] GEORGINA RIGGS CNM [facility] [address] [place] [address] 03/11/2022 15:50:15 03/11/2022 17:11:53 Past history of premature labor 502506928 Z87.51 .cx length, 4.5. denies s/s of labor, mekena given today.Disc ussed Plan to follow up with for future appointmen ts. Gestation period, 32 weeks 0900052 Z3A.32 IUP @ 32+ wks. No OB complaints . RTO 2 wks. [id number] ASHA PRINGLE MD [facility] [address] [place] [address] 03/18/2022 16:05:24 03/21/2022 09:36:41 Injection given 712238957 Z98.957 [id number] Ernestina Mccarty CNM [facility] [address] [place] [address] 04/14/2022 11:59:33 04/14/2022 15:53:18 Maternal depression screening 0003563643 68631 Z13.32 COUNSELING was provided today regarding the following topics:- healthy eating habits & regular exercise - continue light activity & can start lightexerc ise such as walking- Sexual activity - no vaginal penetratio n, no tampons until 6 weeks PP- may resume intercours e after 6 wks PP.- Briefly reviewed contracept malik options & encouraged to consider preferred optionfor next visit- Continue vitamins- Baby blues & depression discussed- She denies any feelings of depression , frequent crying or feelings of harming self orothers.- EPDS is --10- Educated on the warning signs of depression and when to seek medicalatt ention. Was discharged w/SSRI but is not taking it. Wants to wait and see- Perineal care - use witch aysha & dermaplast as needed;- Laceration s: - SAFE SLEEPING INSTRUCTIO NS- avoid back sleep, co-sleepin g- maintain cool environmen t- no blankets or other objects in crib that could present hazard to .- FOLLOW-UP: Schedule a follow-up appointmen t in 4 wks [id number] Ernestina Mccarty CNM [facility] [address] [place] [address] 05/12/2022 12:24:31 05/12/2022 13:23:44 state 82896664 Z39.2 COUNSELING was provided today regarding the following topics:- healthy eating habits. -- education given on weight management .- regular exercise - may resume pre-pregna ncy frequency and intensity as tolerated- Sexual activity - may resume intercours e & use backup contracept ion as needed.- Dietary supplement s: continue vitamins- Maintenance Machinist screening: maintain recommende d screening guidelines including PAP screeninga s indicated- Depression - She denies any feelings of depression , frequent crying or feelings of harming self or others.- EPDS is _9__.- Educated on the warning signs of depression and when to seek medicalatt ention. Pt declines antidepres george- SAFE SLEEPING INSTRUCTIO NS- avoid back sleep, co-sleepin g,- maintain cool environmen t,- no blankets or other objects in crib that could present hazard to infant.- Resume normal activity- May return to work w/o restrictio n when specified maternity leave is completed. - FOLLOW-UP: Schedule a follow-up appointmen t as needed Iron defic iency anemia 44038571 D50.9 [id number] Hayes Ledesam [address] [place] [address] 05/23/2022 15:27:56 05/24/2022 09:23:56 Abnormal uterine bleeding 6816247643 9100 N93.9 Likely nml period returning after deliveryDi scussed fenugreek for reduced milk supply Low back pain 227051375 M54.50 [id number] MARGAUX LYN [facility] [address] [place] [address] 10/11/2022 14:49:52 10/11/2022 15:42:23 Threatened miscarriage 60483455 O20.0 [id number] Natalia yadav CNM [facility] [address] [place] [address] 10/13/2022 10:16:00 10/14/2022 15:03:47 detection examination 65217389 Z32.01 Z32.00 G1 del 22 weekscercl ages and 18 OHP with remaining pregnancie s del at 37.36.35 weekslast delivery was 6 months ago [id number] Nima Mcnamara MD [address] [address] 10/26/2022 12:25:24 11/08/2022 12:31:27 Gestation period, 10 weeks 34542407 Z3A.10 edc may 10 10weeks and a day on 10-13-22 and october 26 she is 12 weeksdiscu ssed at length about the pink bracelet and US she would gt with the and alos labe work and how her visits would be scheduled and discussed nutrition and exercise and places to deliver as well as diff types of Birthcontr ol(includi ng perm sterilizat ion). we discussed the call schedule as well Routine an tenatal care 749939571 Z34.01 Z34.81 O09.511 O09.521 screening 2437 24569 Z36.0 Carrier de tection, molecular genetics 0546079 Z14.8 [id number] [facility] CASSIDY PRINGLE MD [address] [address] 11/17/2022 15:25:42 11/18/2022 14:04:07 Cervical incompetence with problem 844610479 O90.9 Gestation period, 15 weeks 3044829 Z3A.15 High risk due to history of labor 032612032 O09.219 [place] 16-36 weeks Cervical c erclage suture present 02426548 O34.32 [id number] Nima Mcnamara MD [address] [address] 12/01/2022 15:11:31 12/05/2022 11:03:40 Gestation period, 17 weeks 93668658 Z3A.17 Routine an tenatal care 437771461 Z34.01 Z34.81 O09.511 O09.521 Dysuria 31963420 R30.0 Past pregn fuentes history of premature labor 845786405 Z87.51 [id number] Nima Mcnamara MD [address] [place] [address] 12/28/2022 12:29:19 12/28/2022 16:37:41 Gestation period, 21 weeks 93433235 Z3A.21 High risk due to history of labor 399859704 O09.219 shots with all 3 NVD and was at 35,36,37 weeks and had 22 week delivery w/1st Headache 52899305 R51.9 Pruritic disorder 010888 002 L29.9 [id number] Ella Shankar MD [address] [address] 01/20/2023 11:32:08 01/23/2023 09:27:22 Hypokalemia 11246710 E87.6 Nausea 401389304 R11.0 Drug of abuse screen 897 36490 Z02.83 Gestation period, 24 weeks 451247266 Z3A.24 [id number] DILSHAD PATEL DO [address] [address] 02/10/2023 11:56:13 02/10/2023 17:24:56 Gestation period, 27 weeks 94482417 Z3A.27 High risk 4720 [address] Routine an tenatal care 883022640 Z34.03 Z34.83 O09.513 O09.838 [id number] RATNA KING, JEFFERY [address] [address] 02/24/2023 10:03:25 02/24/2023 14:53:04 High risk 12736234 O09.93 Pt is here for a OFE appointmen t. She is taking vitamins. She has no complaints or questions. Denies vaginal bleeding, abdominal cramps, N/V, contractio ns, and LOF. Denies headache, vision changes, swelling of hands or face, and epigastric pain. Reports feeling movement. Discussed Movement Counts. Patient is going to [facility] twice a week for NST/BPP due to IUGR and elevated dopplars. Patient was last seen today. BPP 03/28 per patient. Last growth U/S with MFM on 02/16: <3% and showed elevated dopplars. Patient was to do 1 hour glucose today and she had 1/2 albino ramires and jose antonio dias for breakfast. Will come in on Monday to get 1 hr gtt and 3rd trimester labs. Orders are in. Discussed PTL and precaution s given. There are no identifiab le risk factors for pre-term labor. Notified pt that I do not delivery babies. Recommende d pt see a Delivery physicians only due to high risk . Gestation period, 29 weeks 06970449 Z3A.29 Diabetes m ellitus screening 768402528 Z13.1 grow th restriction 94278271 O36.5999 [id number] Nima Mcnamara MD [facility] h [address] [place] [address] 03/01/2023 12:01:50 03/02/2023 14:45:04 High risk 95898582 O09.893 Diabetes m ellitus screening 465619675 Z13.1 grow th restriction 70477691 O36.5999 Gestation period, 30 weeks 49562542 Z3A.30 [id number] Nima Ledesma DO [facility] [address] [place] [address] 03/15/2023 12:03:27 03/15/2023 13:53:42 Routine care 555943811 Z34.82 High risk 4720 0007 O09.213 Gestation period, 32 weeks 0705947 Z3A.32 [id number] Chelly Hackett MD [facility] h [address] [place] [address] 03/28/2023 12:45:04 03/29/2023 16:24:36 High risk 36675632 O09.213 discussed removal of cerclage in office at 36 wks Gestation period, 33 weeks 51486365 Z3A.33 [id number] Nima [facility] MD [facility] [address] [place] [address] 04/12/2023 14:09:33 04/14/2023 01:22:53 Gestation period, 36 weeks 00185256 Z3A.36 [id number] DILSHAD PATEL, [facility] [address] [place] [address] 04/25/2023 16:02:59 04/25/2023 17:25:23 Benign essential hypertension complicating , childbirth and the puerperium - delivered 271890374 O10.02 normotensi vewill decrease procardia from 60 mg to 30 mg qday.RTO in 1 week for repeat blood pressure check state 3616324 1 Z39.2 pt delivered via on 04/19 [id number] Chelly Hackett MD [facility] [address] [place] [address] 06/06/2023 12:00:59 06/06/2023 20:22:14 state 80796722 Z39.2 discussed changes. discussed blood pressure which is still too high, pt has not been taking her medication . Urged her to make appt with her primary care provider.R TC 4 - 6 wk for annual/pap . Initial pr escription of oral contraception 054448211 Z30.011 she desires ocp, but discussed with her that combinatio n pills are not advised today due to high blood pressure.W ill start Slynd and 2 samples given, may consider comb ocp when blood pressure better controlled [id number] ARAM Malcolm [facility] [address] [place] [address] 12/29/2023 11:34:05 12/29/2023 13:45:09 High grade squamous intraepithelial lesion on cervical Papanicolaou smear 0627957417 9107 R87.613 Discussed the spectrum of abnormal pap smears, the relationsh ip to HPV infection, high and low risk HPV types, cervical dysplasia, cervical cancer, and genital warts. Reviewed HPV as a sexually transmitte d disease, the natural course of most infections and risk factors for infection. Colposcopy recommende d. Procedure reviewed in detail. Human jose llomavirus deoxyribonucleic acid detected, high risk on cervical specimen 221075460 R87.810 Abnormal f inding on evaluation procedure 610668975 R87.811 *Discussed colposcopy technique and procedure, aware that at least 1 biopsy to betaken*Ex plained some bleeding/c ramping*Di scussed she may have brown or black vaginal discharge that will resolve within afew days.* Advised nothing in vagina for 48 hours after the procedure. *Call the office if:- heavy vaginal bleeding, soaking a large pad in 1-2 hours- vaginal bleeding for more than 7 days- foul smelling vaginal discharge- pelvic pain or cramps that do not improve with Motrin or Advil- temperatur e > 100.4*f/u pending results [id number] Nima Ledesma DO [facility] [address] [place] [address] 01/23/2024 11:38:55 01/25/2024 13:00:51 Cervical intraepithelial neoplasia grade 2 622303441 N87.1 Additional diagnosis detail: MAXIMILIANO II (cervical intraepith elial neoplasia II)Explain ed LEEP procedure in detail to the patient.Al l questions answered.P atient would like to proceed.Sc hedule LEEP procedure at the earliest and notify the patient. [id number] SHELTON OLVERA NP [address] [address] 02/06/2024 14:30:28 02/06/2024 17:11:10 Increased frequency of urination 312210066 R35.0 - Pt presents with c/o frequency, tingling, hesitancy and sometimes only urinates a small amt when urinating. She has the feeling she's going to urinate on herself so she's hurrying to use the restroom.- Will start pyridium for the discomfort that she's having.- Once results are back and if she needs treated with an antibiotic will also send in diflucan for her.- Pt verbalizes understand ing and agreeable to POC. [id number] SHELTON OLVERA NP [address] [address] 02/21/2024 12:02:09 02/21/2024 13:27:59 Dysuria 74432281 R30.0 Ms. Bowers, a 33 y.o. presents to clinic regarding her urinary sx that she still has even after taking the macrobid. She was prescribed macrobid in January when she presented with urinary complains, a urine culture was sent and resulted Staphyloco ccus saprophyti cus. She is here today to be seen because she says she still has the frequency, urgency and the ticklish feeling that she has had isn't as bad as when she presented previously . Says that she's urinating a normal amount when she does go to the bathroom. Uses dove unscented soap, denies having changed anything else. She is concerned as she has a LEEP scheduled for 03/04 and wants everything to be ok. Will send her urine for culture and obtain a vaginal swab to r/o any infection. Once results are back will treat. POC discussed with and she verbalizes understand ing and is agreeable to everything . Acute vaginitis 27834918 N76.0 [id number] Nima Ledesma DO [address] [place] [address] 03/25/2024 10:48:24 03/25/2024 14:37:31 Postoperative visit 999773821 Z09 Patient is doing well.Discu ssed surgical pathology reports with the patient.Ad vised next Pap smear in 6 months. [id number] Nima Ledesma DO [address] [address] 09/10/2024 16:17:51 09/11/2024 14:30:57 Abnormal histological finding in specimen from female genital organ 735293054 D06.9 1. A biopsy of cervix was performed in the office today.2. She is scheduled for pap smear. History of abnormal cervical Papanicolaou smear 086139912 Z87.42 Health Concerns Section Related Observation LastModified by Organization Detai ls LastModified Time None Recorded Concern Status LastModified by Organization Details LastModified Time None Recorded Advance Directives Directive None Recorded Payers Encounter Date Sequence Insurance Name Policy Number Policy Garcia Covered Member ID Garcia Member ID Guarantor Name 01/23/2024 1 [employer] (MEDICAID HMO) [id number] Rebeccams Robinson [id number] [facility] Robinson 02/06/2024 1 [employer] (MEDICAID HMO) [id number] Rojas Glispie [id number] Rojas Glispie 02/21/2024 1 [employer] (MEDICAID HMO) [id number] Rojas Glispie [id number] Rojas Glispie 03/25/2024 1 [employer] (MEDICAID HMO) [id number] Rojas Glispie [id number] Rojas Glispie 09/10/2024 1 [employer] (MEDICAID HMO) [id number] 0003 Rojas Glispie [id number] Rojas Glispie Notes Date Note Type Note Provider Name and Address Organization Details Recorded Time 01/23/2024 text/html The patient melia de consented to documentation via virtual scribe for this encounter. Rjoas is 33-year-old female who is here today to discuss LEEP procedure.She was seen 12-29-2023 with Anja. This procedure was suggested and she is here today to learn more about the procedure. Nima Ledesma DO [address] [place] [address], [address], [facility] [employer] [facility] 01/24/2024 10:17:03 02/06/2024 text/html Rojas 33 y/o here with c/o urinary frequency and tingling feeling when urinating, denies pain or burning, or odor, denies any vaginal discharge or itching, LMP 01/09/2024, no control SHELTON OLVERA NP [facility] [address] [place], [address], [facility] [employer] [facility] 02/06/2024 16:03:19 02/21/2024 text/html Rojas is here for UTI problemspatient states she took all medication that was given to her but still feel like she is having the symptom all over againpatient states that she is having pelvic pains now SHELTON OLVERA NP [facility] [place], [address], [facility] [employer] [facility] IV 02/21/2024 12:50:32 03/25/2024 text/html Post-OpReported bypatient.Onset/Bimal g:date of surgery: (03/04/2024) Quality:procedure: (leep / post leep ecc / nexplanon insertion) Context:reason for procedure: (maximiliano 2)Notes:The patient is doing well and has no concerns at present. The patient verbally consented to documentation via virtual scribe for this encounter. Nima Ledesma DO [address] [facility], [place], [address], [facility] [employer] [facility] 03/25/2024 14:12:23 09/10/2024 text/html Post-OpReported bypatient.Onset/Timin 03/04/2024 Quality:LEEP The patient verbally consented to documentation via virtual scribe for this encounter. Rojas ia a 34 year old female who presents today for post op LEEP procedure. She wants to get scheduled for a pap smear. Nima Ledesma DO [address] [facility], [place], [address], [facility] [employer] [facility] 09/11/2024 00:02:46 OBGyn Episode Ob Episode Information Episode Created Date Number of Fetuses Patient Bloodtype Patient rh Status Prepregnancy Weight lbs Domestic Partner Domestic Partner Phone Father Name Supervisor Riprap Placing Status 09/08/19 22 1 CLOSED Fetus Data First Name Last Name Admitted to NICU Weight (g) Sex Living Outcome Pediatric Complications Fetus ID Race Codes Race Delivery Type 2948.34 8 F Full Term 88943 Lit Calculation Initial Lit Date Initial Exam Date Initial Exam Provider Initial Ultrasound Date Last Menstrual Period Date Ultra Sound Weeks Gestation 0 Eighteen To Twenty Week Lit Update Ultra Sound Date Fundal Height At Umbil Quickening Date Ultra Sound Latest Weeks Gestation Final Lit Confirmed By Final Lit Confirmed Date Final Lit Date Ultra Sound Latest Days Gestation 0 0 Menstrual History Last Menstrual Date Menses Monthly On Bcp Conception Prior Menses Frequency Hcg Plus Date Menarche Onset Age Delivery Information Delivery Date Delivery Type Labor Anesthesia Weeks Gestation Incision Type Labor Labor Length Hrs Delivered By Post Complications Tubal Sterilization Discharge Date Comments 7 Discharge Information Feeding Method Contraceptive Method Maternal HG B and HCT Levels Ob Episode Information Episode Created Date Number of Fetuses Patient Bloodtype Patient rh Status Prepregnancy Weight lbs Domestic Partner Domestic Partner Phone Father Name Supervisor Riprap Placing Status 09/08/19 22 1 CLOSED Fetus Data First Name Last Name Admitted to NICU Weight (g) Sex Living Outcome Pediatric Complications Fetus ID Race Codes Race Delivery Type Prematur e 81623 Lit Calculation Initial Lit Date Initial Exam Date Initial Exam Provider Initial Ultrasound Date Last Menstrual Period Date Ultra Sound Weeks Gestation 0 Eighteen To Twenty Week Lit Update Ultra Sound Date Fundal Height At Umbil Quickening Date Ultra Sound Latest Weeks Gestation Final Lit Confirmed By Final Lit Confirmed Date Final Lit Date Ultra Sound Latest Days Gestation 0 0 Menstrual History Last Menstrual Date Menses Monthly On Bcp Conception Prior Menses Frequency Hcg Plus Date Menarche Onset Age Delivery Information Delivery Date Delivery Type Labor Anesthesia Weeks Gestation Incision Type Labor Labor Length Hrs Delivered By Post Complications Tubal Sterilization Discharge Date Comments 2 18 Discharge Information Feeding Method Contraceptive Method Maternal HG B and HCT Levels Ob Episode Information Episode Created Date Number of Fetuses Patient Bloodtype Patient rh Status Prepregnancy Weight lbs Domestic Partner Domestic Partner Phone Father Name Supervisor Riprap Placing Status 09/08/19 22 1 CLOSED Fetus Data First Name Last Name Admitted to NICU Weight (g) Sex Living Outcome Pediatric Complications Fetus ID Race Codes Race Delivery Type 3259.96 5704 M Full Term 97409 Lit Calculation Initial Lit Date Initial Exam Date Initial Exam Provider Initial Ultrasound Date Last Menstrual Period Date Ultra Sound Weeks Gestation 0 Eighteen To Twenty Week Lit Update Ultra Sound Date Fundal Height At Umbil Quickening Date Ultra Sound Latest Weeks Gestation Final Lit Confirmed By Final Lit Confirmed Date Final Lit Date Ultra Sound Latest Days Gestation 0 0 Menstrual History Last Menstrual Date Menses Monthly On Bcp Conception Prior Menses Frequency Hcg Plus Date Menarche Onset Age Delivery Information Delivery Date Delivery Type Labor Anesthesia Weeks Gestation Incision Type Labor Labor Length Hrs Delivered By Post Complications Tubal Sterilization Discharge Date Comments 3 Discharge Information Feeding Method Contraceptive Method Maternal HG B and HCT Levels Ob Episode Information Episode Created Date Number of Fetuses Patient Bloodtype Patient rh Status Prepregnancy Weight lbs Domestic Partner Domestic Partner Phone Father Name Supervisor Riprap Placing Status 09/13/19 22 1 B Positive CLOSED Fetus Data First Name Last Name Admitted to NICU Weight (g) Sex Living Outcome Pediatric Complications Fetus ID Race Codes Race Delivery Type true 2418.23 [id number] F Prematur e None [id number] Problems Problem Notes Problem Name Start Date End Date Resolution Snomed Code Not e Past history of premature delivery [id number] 1st was at 22 w eeks and then 2 cerclages and delivered at 37 and 36 weeks and had 17 p shots with third preg and she had emergency cerclage w/2nd at 25 weeks Lit Calculation Initial Lit Date Initial Exam Date Initial Exam Provider Initial Ultrasound Date Last Menstrual Period Date Ultra Sound Weeks Gestation 05/05/2022 09/13/2021 09/13/2021 6 Eighteen To Twenty Week Lit Update Ultra Sound Date Fundal Height At Umbil Quickening Date Ultra Sound Latest Weeks Gestation Final Lit Confirmed By Final Lit Confirmed Date Final Lit Date Ultra Sound Latest Days Gestation 0 [email or web address] 09/13/2021 05/05/20 22 0 Pre- Flowsheet Flowsheet Date 09/13/2021 Mooney Score Blood Edema Fundus Height Fundus Units Glucose Ketones Leukocytes Nitrite Labor Signs Protein Cervic Dilation Cervic Effacement Cervic Station none Type Weight in lbs Pre/Post Dialysis Refused Weight 260.463776821781 BP Diastolic BP Location Tested BP Systolic BP Type 74 112 Fetus Heart Rate Present A 122 Present Fetus Movement Comments PA sent for [place], hx 22 we ek and previous use of korin. Pt has hx of rescue cerclage x2 and would like to be evaluated for prophylactic cerclage this . S/S SAB and when to seek emergency care reviewed. NOB labs collected today. Discussed fibroids found incidentally on scan. RTC 6 weeks for OFE with US to eval cervical length. Flowsheet Date 09/20/2021 Mooney Score Blood Edema Fundus Height Fundus Units Glucose Ketones Leukocytes Nitrite Labor Signs Protein Cervic Dilation Cervic Effacement Cervic Station Type Weight in lbs Pre/Post Dialysis Refused Weight 260.780142921478 BP Diastolic BP Location Tested BP Systolic BP Type 86 126 Fetus Heart Rate Present A 158 Present Fetus Movement Comments here for OFE and to discuss n/v and constipation. Has only been taking b6, not unisom and is not regularly having BM. Rec daily miralax as she was previously taking this before and adding on unisom nightly. S/S SAB reviewed. RTC @12 weeks for OFE with CL. Flowsheet Date 10/28/2021 Mooney Score Blood Edema Fundus Height Fundus Units Glucose Ketones Leukocytes Nitrite Labor Signs Protein Cervic Dilation Cervic Effacement Cervic Station none neg Type Weight in lbs Pre/Post Dialysis Refused Weight 250.454931558696 BP Diastolic BP Location Tested BP Systolic BP Type 88 128 Fetus Heart Rate Present A 150 Present Fetus Movement Comments Pt reports getting rescue ce rclage x2. Advised prophylactic cerclage is preferable to rescue and to make appt with Naima next week for eval. Still needs 1 hour GTT. Cannot stay today. Will come monday. States she feels her urine smells fruity . No glucose today. CL today: 6.45 Flowsheet Date 11/10/2021 Mooney Score Blood Edema Fundus Height Fundus Units Glucose Ketones Leukocytes Nitrite Labor Signs Protein Cervic Dilation Cervic Effacement Cervic Station none none neg Type Weight in lbs Pre/Post Dialysis Refused With clothes 251.83517921673 BP Diastolic BP Location Tested BP Systolic BP Type 80 R arm 122 sitting Fetus Heart Rate Present A 150 Fetus Movement Comments big dip on urine was neg as she has had some increased usi w/coughing and discussed risks benefits of cerclage and 17 p shots and we will give flagyl prior to the procedure Flowsheet Date 12/03/2021 Mooney Score Blood Edema Fundus Height Fundus Units Glucose Ketones Leukocytes Nitrite Labor Signs Protein Cervic Dilation Cervic Effacement Cervic Station none Type Weight in lbs Pre/Post Dialysis Refused Weight 143.691023532036 BP Diastolic BP Location Tested BP Systolic BP Type 82 128 Fetus Heart Rate Present A 149 Present Fetus Movement A Yes Comments [place] done today. CL 6.7 cm . S/S SAB reviewed. RTC 20 weeks for [place], anatomy, and OFE. Flowsheet Date 12/10/2021 Mooney Score Blood Edema Fundus Height Fundus Units Glucose Ketones Leukocytes Nitrite Labor Signs Protein Cervic Dilation Cervic Effacement Cervic Station Type Weight in lbs Pre/Post Dialysis Refused BP Diastolic BP Location Tested BP Systolic BP Type Fetus Heart Rate Present Fetus Movement Comments Flowsheet Date 12/17/2021 Mooney Score Blood Edema Fundus Height Fundus Units Glucose Ketones Leukocytes Nitrite Labor Signs Protein Cervic Dilation Cervic Effacement Cervic Station Type Weight in lbs Pre/Post Dialysis Refused BP Diastolic BP Location Tested BP Systolic BP Type Fetus Heart Rate Present Fetus Movement Comments Flowsheet Date 12/23/2021 Mooney Score Blood Edema Fundus Height Fundus Units Glucose Ketones Leukocytes Nitrite Labor Signs Protein Cervic Dilation Cervic Effacement Cervic Station none none Type Weight in lbs Pre/Post Dialysis Refused Weight 256.539660554472 BP Diastolic BP Location Tested BP Systolic BP Type 78 122 Fetus Heart Rate Present A 160 Present Fetus Movement A Yes Comments Anatomy today. CL long. Inco mplete. Repeat anatomy 4 weeks. PTL and preeclampsia precautions reviewed. RTC 4 weeks or sooner for needs. No concerns with cerclage today. Some cramping when overexerting body but nothing consistent or daily. GERD becoming daily issue. pepcid rx. Flowsheet Date 12/24/2021 Mooney Score Blood Edema Fundus Height Fundus Units Glucose Ketones Leukocytes Nitrite Labor Signs Protein Cervic Dilation Cervic Effacement Cervic Station Type Weight in lbs Pre/Post Dialysis Refused BP Diastolic BP Location Tested BP Systolic BP Type Fetus Heart Rate Present Fetus Movement Comments Flowsheet Date 12/31/2021 Mooney Score Blood Edema Fundus Height Fundus Units Glucose Ketones Leukocytes Nitrite Labor Signs Protein Cervic Dilation Cervic Effacement Cervic Station Type Weight in lbs Pre/Post Dialysis Refused BP Diastolic BP Location Tested BP Systolic BP Type Fetus Heart Rate Present Fetus Movement Comments Flowsheet Date 01/07/2022 Mooney Score Blood Edema Fundus Height Fundus Units Glucose Ketones Leukocytes Nitrite Labor Signs Protein Cervic Dilation Cervic Effacement Cervic Station Type Weight in lbs Pre/Post Dialysis Refused BP Diastolic BP Location Tested BP Systolic BP Type Fetus Heart Rate Present Fetus Movement Comments Flowsheet Date 01/14/2022 Mooney Score Blood Edema Fundus Height Fundus Units Glucose Ketones Leukocytes Nitrite Labor Signs Protein Cervic Dilation Cervic Effacement Cervic Station none trace Type Weight in lbs Pre/Post Dialysis Refused With clothes 257.304814088806 BP Diastolic BP Location Tested BP Systolic BP Type 76 R arm 126 sitting Fetus Heart Rate Present Fetus Movement Comments Flowsheet Date 01/21/2022 Mooney Score Blood Edema Fundus Height Fundus Units Glucose Ketones Leukocytes Nitrite Labor Signs Protein Cervic Dilation Cervic Effacement Cervic Station Type Weight in lbs Pre/Post Dialysis Refused BP Diastolic BP Location Tested BP Systolic BP Type Fetus Heart Rate Present Fetus Movement Comments Flowsheet Date 01/28/2022 Mooney Score Blood Edema Fundus Height Fundus Units Glucose Ketones Leukocytes Nitrite Labor Signs Protein Cervic Dilation Cervic Effacement Cervic Station Type Weight in lbs Pre/Post Dialysis Refused BP Diastolic BP Location Tested BP Systolic BP Type Fetus Heart Rate Present Fetus Movement Comments Flowsheet Date 02/04/2022 Mooney Score Blood Edema Fundus Height Fundus Units Glucose Ketones Leukocytes Nitrite Labor Signs Protein Cervic Dilation Cervic Effacement Cervic Station Type Weight in lbs Pre/Post Dialysis Refused BP Diastolic BP Location Tested BP Systolic BP Type Fetus Heart Rate Present Fetus Movement Comments Flowsheet Date 02/11/2022 Mooney Score Blood Edema Fundus Height Fundus Units Glucose Ketones Leukocytes Nitrite Labor Signs Protein Cervic Dilation Cervic Effacement Cervic Station none 28 wks none none neg Type Weight in lbs Pre/Post Dialysis Refused Weight 254.403737787200 BP Diastolic BP Location Tested BP Systolic BP Type 74 126 Fetus Heart Rate Present A 132 Present Fetus Movement A Yes Comments no s/s of ptl, complaints of vaginal irritation, sureswab sent. fwb reassuring. Flowsheet Date 02/11/2022 Mooney Score Blood Edema Fundus Height Fundus Units Glucose Ketones Leukocytes Nitrite Labor Signs Protein Cervic Dilation Cervic Effacement Cervic Station Type Weight in lbs Pre/Post Dialysis Refused BP Diastolic BP Location Tested BP Systolic BP Type Fetus Heart Rate Present Fetus Movement Comments [place] injection given in le ft upper arm. Autoinjector 275mg/1m. lot: [id number] exp: 02/10 Flowsheet Date 02/18/2022 Mooney Score Blood Edema Fundus Height Fundus Units Glucose Ketones Leukocytes Nitrite Labor Signs Protein Cervic Dilation Cervic Effacement Cervic Station Type Weight in lbs Pre/Post Dialysis Refused BP Diastolic BP Location Tested BP Systolic BP Type Fetus Heart Rate Present Fetus Movement Comments Flowsheet Date 02/25/2022 Mooney Score Blood Edema Fundus Height Fundus Units Glucose Ketones Leukocytes Nitrite Labor Signs Protein Cervic Dilation Cervic Effacement Cervic Station none 30 cm none Cramping neg Type Weight in lbs Pre/Post Dialysis Refused Weight 253.668587706597 BP Diastolic BP Location Tested BP Systolic BP Type Fetus Heart Rate Present A 138 Present Fetus Movement A Yes Comments vaginal irritation reported, sure swab sent. fwb reassuring. reports mild abdominal cramping. ptl precautions discussed. plan cervical length with 4d next visit. Flowsheet Date 03/04/2022 Mooney Score Blood Edema Fundus Height Fundus Units Glucose Ketones Leukocytes Nitrite Labor Signs Protein Cervic Dilation Cervic Effacement Cervic Station Type Weight in lbs Pre/Post Dialysis Refused BP Diastolic BP Location Tested BP Systolic BP Type Fetus Heart Rate Present Fetus Movement Comments Flowsheet Date 03/11/2022 Mooney Score Blood Edema Fundus Height Fundus Units Glucose Ketones Leukocytes Nitrite Labor Signs Protein Cervic Dilation Cervic Effacement Cervic Station none none none neg Type Weight in lbs Pre/Post Dialysis Refused Weight 256.391291464239 BP Diastolic BP Location Tested BP Systolic BP Type 76 128 Fetus Heart Rate Present A 128 Present Fetus Movement A Yes Comments 4d complete, mekena givencx length 4.5. Denies s/s of ptl. Flowsheet Date 03/18/2022 Mooney Score Blood Edema Fundus Height Fundus Units Glucose Ketones Leukocytes Nitrite Labor Signs Protein Cervic Dilation Cervic Effacement Cervic Station Type Weight in lbs Pre/Post Dialysis Refused BP Diastolic BP Location Tested BP Systolic BP Type Fetus Heart Rate Present Fetus Movement Comments Flowsheet Date 04/14/2022 Mooney Score Blood Edema Fundus Height Fundus Units Glucose Ketones Leukocytes Nitrite Labor Signs Protein Cervic Dilation Cervic Effacement Cervic Station Type Weight in lbs Pre/Post Dialysis Refused With clothes 237.0550080551 BP Diastolic BP Location Tested BP Systolic BP Type 74 L arm 118 sitting Fetus Heart Rate Present Fetus Movement Comments Flowsheet Date 05/12/2022 Mooney Score Blood Edema Fundus Height Fundus Units Glucose Ketones Leukocytes Nitrite Labor Signs Protein Cervic Dilation Cervic Effacement Cervic Station Type Weight in lbs Pre/Post Dialysis Refused Weight 244.935731238343 BP Diastolic BP Location Tested BP Systolic BP Type 70 118 Fetus Heart Rate Present Fetus Movement Comments Menstrual History Last Menstrual Date Menses Monthly On Bcp Conception Prior Menses Frequency Hcg Plus Date Menarche Onset Age Genetic Screening And Infection History Question Response Note Recent Travel History Outside of Country false Cystic Fibrosis false Any Other Genetic History false Shad Disease false Other Infection History false Thalassemia (Turkmen, Slovenian, Mediterranean, Or Background): MCV < 80 false Patient Or Baby's Father Had A Child With Defects Not Listed Above false Live With Someone With TB Or Exposed To TB false Patient's Age Will Be 35 Years Or Older At Estim ated Date of Delivery false Recurrent Loss, Or A Stillbirth false Hemoglobinopathy Or Carrier false Patient Or Partner Has History Of Genital Herpes false Intellectual Disability/Autism false Maternal Metabolic Disorder (eg, Type 1 Diabetes , PKU) false History of Hepatitis false Stanley-Sachs (eg, Mormon, Cajun, Finnish-Kenyan) f alse History Of STD, Gonorrhea, Chlamydia, HPV, Syphi lis false Prior GBS-infected child false History of HIV false Personal or Family History o f Neural Tube Defect (Meningomyelocele, Spina Bifida, Or Anencephaly) false Hemophilia Or Other Blood Disorders false Mental Retardation/Autism false Felipe's Chorea false If Yes, Was Person Tested For Fragile X? false Other Inherited Genetic Or Chromosomal Disorder false If Yes, Agent(s) And Strength/Dosage false Sickle Cell Disease Or Trait () false Personal or Family History of Congenital Heart D efect false Rash Or Viral Illness Since Last Menstrual Perio d false Muscular Dystrophy false Medications (including Suppl ements, Vitamins, Herbs, OTC Drugs), Illicit/Recreational Drugs, Alcohol false Other Structural Defect false Down Syndrome false Delivery Information Delivery Date Delivery Type Labor Anesthesia Weeks Gestation Incision Type Labor Labor Length Hrs Delivered By Post Complications Tubal Sterilization Discharge Date Comments 2 [facility] 35 true Kath Nicholson CNKaushik None 04/02/2022 Discharge Information Feeding Method Contraceptive Method Maternal HG B and HCT Levels Combination not desired Ob Episode Information Episode Created Date Number of Fetuses Patient Bloodtype Patient rh Status Prepregnancy Weight lbs Domestic Partner Domestic Partner Phone Father Name Supervisor Riprap Placing Status 10/27/19 23 1 Positive CLOSED Fetus Data First Name Last Name Admitted to NICU Weight (g) Sex Living Outcome Pediatric Complications Fetus ID Race Codes Race Delivery Type KaMon ie true 1982.46 5 F [id number] Black or Afric an Ameri can Problems Problem Notes s/p Cerclage 11/15. by Dr LANGLEY and on 11-17-22 cvx length 6cm, Anatomy ssm 01-04-2317-P from 16 weeks and if unable will do 200mg prometrium daily Problem Name Start Date End Date Resolution Snomed Code Not e Past history of premature delivery [id number] [facility] cerclage removed 04-12-23 Elevated blood-pressure reading without diagnosis of hypertension [id number] [facility] labs WNL @ [facility] on 01/20 growth restriction 01/14/2023 [id number] MFM anatomy EFW 9%, MFM will F/U 02/01, Also for incomplete anatomy. Update 02/16: EFW <3%, elevated dopplars. MFM doing NST/BPP biweekly., 7- efw 6% and soham =18 and s/d ratio [place] Lit Calculation Initial Lit Date Initial Exam Date Initial Exam Provider Initial Ultrasound Date Last Menstrual Period Date Ultra Sound Weeks Gestation 05/10/2023 10/26/2022 10/13/2022 07/27/2022 10 Eighteen To Twenty Week Lit Update Ultra Sound Date Fundal Height At Umbil Quickening Date Ultra Sound Latest Weeks Gestation Final Lit Confirmed By Final Lit Confirmed Date Final Lit Date Ultra Sound Latest Days Gestation 0 [email or web address] 10/26/2022 05/10/20 23 0 Pre-bruce Flowsheet Flowsheet Date 10/26/2022 Mooney Score Blood Edema Fundus Height Fundus Units Glucose Ketones Leukocytes Nitrite Labor Signs Protein Cervic Dilation Cervic Effacement Cervic Station trace Type Weight in lbs Pre/Post Dialysis Refused With clothes 262.998560414354 BP Diastolic BP Location Tested BP Systolic BP Type 88 R arm 130 sitting Fetus Heart Rate Present Fetus Movement Comments Dr LANGLEY did her last cerclage Flowsheet Date 11/17/2022 Mooney Score Blood Edema Fundus Height Fundus Units Glucose Ketones Leukocytes Nitrite Labor Signs Protein Cervic Dilation Cervic Effacement Cervic Station Type Weight in lbs Pre/Post Dialysis Refused With clothes 260.115812993019 BP Diastolic BP Location Tested BP Systolic BP Type 86 L arm 116 sitting Fetus Heart Rate Present A 142 Fetus Movement Comments cxl >6cm; cerclage placed Flowsheet Date 12/01/2022 Mooney Score Blood Edema Fundus Height Fundus Units Glucose Ketones Leukocytes Nitrite Labor Signs Protein Cervic Dilation Cervic Effacement Cervic Station trace Type Weight in lbs Pre/Post Dialysis Refused Weight 259.564381064351 BP Diastolic BP Location Tested BP Systolic BP Type 88 L arm 124 sitting Fetus Heart Rate Present A 150 Fetus Movement Comments girl and this will be their 4th girl, will big dip urine and 20 week scan for anatomy at next visit Flowsheet Date 12/28/2022 Mooney Score Blood Edema Fundus Height Fundus Units Glucose Ketones Leukocytes Nitrite Labor Signs Protein Cervic Dilation Cervic Effacement Cervic Station trace Type Weight in lbs Pre/Post Dialysis Refused With clothes 257.153017158845 BP Diastolic BP Location Tested BP Systolic BP Type 78 L arm 118 sitting Fetus Heart Rate Present A 140 Fetus Movement A Yes Comments itching all over body and sh e has no obv rash or pappules and has CHURCH and we will do fioricet and mag citrate Flowsheet Date 01/20/2023 Mooney Score Blood Edema Fundus Height Fundus Units Glucose Ketones Leukocytes Nitrite Labor Signs Protein Cervic Dilation Cervic Effacement Cervic Station 30 cm Type Weight in lbs Pre/Post Dialysis Refused With clothes 256.334339681920 BP Diastolic BP Location Tested BP Systolic BP Type 80 142 sitting 80 140 sitting Fetus Heart Rate Present A 134 Fetus Movement A Yes Comments CMP today for low K+, She re ports no HTN in the past, no Hx of Preeclampsia, her SBP was elevated. Patient reports no headache, no visual changes no epispastic pain. Pre-eclampsia precautions discussed, please call of return if any headache, visual changes or epigastric pain.PTL precautions given. FM counts discussed. F/u in L&D if experiencing decreased movement, leaking fluid, 4 or more contractions in 1 hour not relieved by rest and fluids, or regular uterine contractions increasing in frequency and/or intensity.Reports good movement, no Leakage of fluids no vaginal bleeding.Pt was advised to go to L&D for BP Preeclampsia check. Flowsheet Date 02/10/2023 Mooney Score Blood Edema Fundus Height Fundus Units Glucose Ketones Leukocytes Nitrite Labor Signs Protein Cervic Dilation Cervic Effacement Cervic Station none Type Weight in lbs Pre/Post Dialysis Refused With clothes 258.246319317566 BP Diastolic BP Location Tested BP Systolic BP Type 80 L arm 132 sitting Fetus Heart Rate Present A 140 Fetus Movement A Yes Comments no ob complaints. pt to retu rn next week for 28 week labs. cerclage in place, but not taking prometrium vaginally. missed follow up growth us for efew: 9%, will call mfm to reschedule Flowsheet Date 02/24/2023 Mooney Score Blood Edema Fundus Height Fundus Units Glucose Ketones Leukocytes Nitrite Labor Signs Protein Cervic Dilation Cervic Effacement Cervic Station none Type Weight in lbs Pre/Post Dialysis Refused BP Diastolic BP Location Tested BP Systolic BP Type 72 124 sitting Fetus Heart Rate Present A 142 Present Fetus Movement A Yes Comments No OB complaints today. Henrietta ent is going to [facility] twice a week for NST/BPP. Patient was last seen today. BPP 03/28 per patient. Last growth U/S with [facility] on 02/16: IUGR <3% and showed elevated dopplars. Patient was to do 1 hour glucose today and she had 1/2 albino jonathan ramires and fried okra for breakfast. Will come in on Monday to get 1 hr gtt and 3rd trimester labs. Orders are in. Flowsheet Date 03/01/2023 Mooney Score Blood Edema Fundus Height Fundus Units Glucose Ketones Leukocytes Nitrite Labor Signs Protein Cervic Dilation Cervic Effacement Cervic Station trace 32 none neg Type Weight in lbs Pre/Post Dialysis Refused With clothes 261.52448686273 BP Diastolic BP Location Tested BP Systolic BP Type 86 L arm 128 sitting Fetus Heart Rate Present A 140 Fetus Movement A Yes Comments doing well and discused PTL and 811 is her babys bday Flowsheet Date 03/15/2023 Mooney Score Blood Edema Fundus Height Fundus Units Glucose Ketones Leukocytes Nitrite Labor Signs Protein Cervic Dilation Cervic Effacement Cervic Station none neg Type Weight in lbs Pre/Post Dialysis Refused With clothes 263.683636408325 BP Diastolic BP Location Tested BP Systolic BP Type 78 R arm 130 sitting Fetus Heart Rate Present Fetus Movement Comments Flowsheet Date 03/28/2023 Mooney Score Blood Edema Fundus Height Fundus Units Glucose Ketones Leukocytes Nitrite Labor Signs Protein Cervic Dilation Cervic Effacement Cervic Station Type Weight in lbs Pre/Post Dialysis Refused With clothes 261.63722066041 BP Diastolic BP Location Tested BP Systolic BP Type 88 L arm 136 sitting Fetus Heart Rate Present Fetus Movement Comments Flowsheet Date 04/12/2023 Mooney Score Blood Edema Fundus Height Fundus Units Glucose Ketones Leukocytes Nitrite Labor Signs Protein Cervic Dilation Cervic Effacement Cervic Station trace 40 none Type Weight in lbs Pre/Post Dialysis Refused With clothes 262.327863154688 BP Diastolic BP Location Tested BP Systolic BP Type 78 L arm 130 sitting Fetus Heart Rate Present A 140 Fetus Movement A Yes Comments cerclage removed w/o difficu lty and gbs obtained Flowsheet Date 04/25/2023 Mooney Score Blood Edema Fundus Height Fundus Units Glucose Ketones Leukocytes Nitrite Labor Signs Protein Cervic Dilation Cervic Effacement Cervic Station none neg Type Weight in lbs Pre/Post Dialysis Refused With clothes 250.222128352948 BP Diastolic BP Location Tested BP Systolic BP Type 76 126 sitting Fetus Heart Rate Present Fetus Movement Comments Flowsheet Date 06/06/2023 Mooney Score Blood Edema Fundus Height Fundus Units Glucose Ketones Leukocytes Nitrite Labor Signs Protein Cervic Dilation Cervic Effacement Cervic Station Type Weight in lbs Pre/Post Dialysis Refused With clothes 253.370291071923 BP Diastolic BP Location Tested BP Systolic BP Type 100 L arm 140 sitting Fetus Heart Rate Present Fetus Movement Comments Menstrual History Last Menstrual Date Menses Monthly On Bcp Conception Prior Menses Frequency Hcg Plus Date Menarche Onset Age 1207/27/2022 true Delivery Information Delivery Date Delivery Type Labor Anesthesia Weeks Gestation Incision Type Labor Labor Length Hrs Delivered By Post Complications Tubal Sterilization Discharge Date Comments 3 37 Chelly Hackett MD Discharge Information Feeding Method Contraceptive Method Maternal HG B and HCT Levels Combination
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
--- OUTSIDE RECORDS SUMMARY | 2024-09-23 17:12 | XMS_ITS | Clinical Summary ---
Author Organization [facility] Address [address] [place] [address]. [place] [address] [place] [address] Care Team Providers Care School Office Assistant Name Role Phone MendelNadege vallejo SHILPA Primary Care Provider [phone] Allergies Active Allergy Reactions Criticality Noted Date Comments Asparagus Itching,Rash Low 03/31/2022 Copper-Containing Compounds Rash Medium 01/09/2017 Rash with keloid formation, Rash with keloid formation, Rash with keloid formation Cynara Scolymus (Artichoke) Itching,Rash Low 03/31/2022 Kale Itching,Rash Low 03/31/2022 Mangifera Indica Itching Low 12/27/2017 Sparkill Flavoring Agent (Non-Screening) Itching,Shortness of Breath High 11/15/2022 Morphine Hallucinations,Other (see comment),Unknown Medium 12/22/2016 Unknown, Unknown, Unknown Unknown, Unknown, Unknown Peanut (Diagnostic) Itching Low 07/25/2012 Peanut butter and peanuts- itching including tongue, Peanut butter and peanuts- itching including tongue, Peanut butter and peanuts- itching including tongue Peanut Butter Flavoring Agent (Non-Screening) Itching,Shortness of Breath,Throat swelling High 03/31/2022 Peanut Oil Itching,Shortness of Breath High 12/27/2017 Strawberries Itching,Shortness of Breath High 07/25/2012 Medications cetirizine 10 MG chewable tablet Chew 10 mg by mouth daily. Active fluticasone propionate (FLONASE) 50 MCG/ACT nasal spray 11/08/2022 Active metoclopramide (REGLAN) 5 MG tablet 01/20/2023 Active potassium chloride CR (K-TAB) 20 MEQ tablet Take 1 tablet (20 mEq total) by mouth daily. 01/07/2023 Active Active Problems Problem Noted Date Diagnosed Date labor ([facility]) 03/31/2022 Threatened labor, third trimester ([facility]) 03/26/2022 Cervical cerclage suture pre sent in third trimester ([facility]) 03/26/2022 Hx of cerclage, currently ([facility]) 08/2021 Family History Medical History Relation Comments No Known Problems Father Breast Cancer Maternal Aunt No Known Problems Mother Breast Cancer Sister Relation Status Comments Father Maternal Aunt Mother Sister Social History Tobacco Use Types Packs/Day Years Used Date Smoking Tobacco: Former Cigarettes Smokeless Tobacco: Never Tobacco Cessation:Counseling Given: Not Answered Alcohol Use Standard Drinks/Week Comments Not Currently 0 (1 standard drink = 0.6 oz pur e alcohol) Depression Answer Date Recor ded Last EPDS Total Score 12 04/02/2022 Last EPDS Self Harm Result 04/02 Comments No Sex and Gender Information Value Date Recorded Sex Assigned at Not on file Legal Sex Female 6:01 PM CDT Gender Identity Female 11/12/2021 11:15 AM CDT Sexual Orientation Straight 08/13/2021 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 Vital Signs Vital Sign Reading Time Taken Comments Blood Pressure 141/87 04/07/2023 12:30 PM CDT Pulse 193 04/07/2023 12:35 PM CDT Temperature 36.6 ??C (97.9 ??F) 04/07/2023 11:15 AM C DT Respiratory Rate 18 04/07/2023 12:15 PM CDT Oxygen Saturation 100% 11/24/2022 4:15 PM CDT Inhaled Oxygen Concentration - - Weight 117.9 kg (260 lb) 04/07/2023 11:00 AM CDT Height 160 cm (5' 3 ) 04/07/2023 11:00 AM CDT Body Mass Index 46.06 04/07/2023 11:00 AM CDT Plan of Treatment Health Maintenance Due Date Last Done Comments Cervical Cancer Screening Pap Smear (Age 30 to 64) Every 3 Years 1991 Annual Physical 1994 Hepatitis C 2009 Hepatitis B Vaccines (1 of 3 - 19+ 3-dose series) 2010 Cervical Cancer Screening Pap with HPV Testing (Age 30 to 64) Every 5 Years 2021 Cervical Cancer Screening with HPV 2021 COVID-19 Vaccine ( - season) 2024 11/17/2020 Influenza Adult (#1) 2024 06/18/2019, 05/25/20 13 DTaP, Tdap and Td Vaccines (3 - Td or Tdap) 03/02/2028 03/02/2018, 05/25/2013, 03/21/1995, Additional history exists HPV Vaccines Aged Out No longer eligi ble based on patient's age to complete this topic Meningococcal B Vaccine Aged Out No l onger eligible based on patient's age to complete this topic Meningococcal Vaccine Aged Out No karine denadra eligible based on patient's age to complete this topic Pneumococcal Vaccine: Pediatrics (0 to 5 Years) and At-Risk Patients (6 to 64 Years) Aged Out No longer eligible based on patient's age to complete this topic RSV Immunizations Under 20 Months Aged Out No longer eligible based on patient's age to complete this topic Insurance [employer] Advance Directives * Full Code (Latest Code Status on File) Date Activated Date Inactivated Comments 11/15/2022 3:49 PM 11/15/2022 9:07 PM * Full Code Date Activated Date Inactivated Comments 03/31/2022 8:37 AM 04/02/2022 3:01 PM * Full Code Date Activated Date Inactivated Comments 11/19/2021 1:46 PM 11/19/2021 8:42 PM Care Teams School Office Assistant Relationship Specialty Start Date End Date Nadege Laurent NP [address] [facility] [address] [place] [address] PCP - General Nurse Practitioner Family 09/30/19
[2024-09-23 17:21] VITALS: BP 140/97; PULSE 74; RESP 16; O2SAT 97
[2024-09-23] MEDS: KETOROLAC 30 MG/ML VIAL (*BKC) IV PUSH (17:32)
[2024-09-23 17:48] VITALS: BP 140/97; PULSE 95; RESP 16; O2SAT 97
== END 2024-09-23 17:50 | disposition home or self-care (01) ==
LOC: ANHED 17:09
PROVIDERS: Emergency Medicine; Emergency Provider Family Medicine
DX: R07.89 Other chest pain (principal); F41.9 Anxiety disorder, unspecified; R94.31 Abnormal electrocardiogram [ECG] [EKG]
CPT/HCPCS: 36415; 71046; 80053; 83690; 84484; 85025; 85610; 85730; 93005; 96374; 99284; J1885